=== PATIENT | male | born 1955 | race Hispanic/Latino ===

== ENCOUNTER 2018-10-17 08:56 | Emergency (ER) | payer MEDICAID ==
[2018-10-17 09:28] LABS: Absolute Monocytes 0.6 K/uL (0.1-1.3); Absolute Neutrophil 2.8 K/uL (1.8-8.0); Basophils % 0.6 % (0-1.3); Eosinophils % 1.7 % (0-4.4); Hematocrit 39.9 % (39.6-49.0); Lymphocytes % 35.5 % (15.3-44.8); MPV 9.6 fL (7.6-11.3); Monocytes % 10.7 % (3.3-12.3); RBC Red Blood Cell Count 4.06 M/uL (4.33-5.43)
[2018-10-17 09:37] LABS: Protime INR 1.3
[2018-10-17 09:47] LABS: ALT/SGPT 24 U/L (12-78); AST/SGOT 26 U/L (15-37); Albumin 2.6 g/dL (3.4-5.0); Alkaline Phosphatase 140 U/L (45-117); BUN Blood Urea Nitrogen 12 mg/dL (7-18); Bicarbonate 28 mmol/L (21-32); Bilirubin Total 2.3 mg/dL (0.2-1.0); Glucose Level 260 mg/dL (74-106); NT PRO-BNP 161 pg/mL (<125); Potassium 3.7 mmol/L (3.5-5.1); Protein, Total 7.3 g/dL (6.4-8.2); Sodium Level 138 mmol/L (136-145); Troponin (Emerg Dept Use Only) < 0.02 ng/mL (0.0-0.045)
--- NOTE | 2018-10-17 09:54 | RAD REPORT ---
EXAM DESCRIPTION: RAD - Chest Single View - 10/17/2018 9:37 am CLINICAL HISTORY: CHEST PAIN Chest pain. COMPARISON: No comparisons FINDINGS: Portable technique limits examination quality. Small opacity in the right lung base is noted likely representing developing infiltrate/ pneumonia. T he lungs are otherwise clear. The heart is normal in size. No displaced fractures.
--- NOTE | 2018-10-17 10:57 | RAD REPORT ---
EXAM DESCRIPTION: CTAbdomen Pelvis W Contrast - 10/17/2018 10:29 am CLINICAL HISTORY: Abdominal pain. Upper abdominal pain COMPARISON: No comparisons TECHNIQUE: Biphasic CT imaging of the abdomen and pelvis was performed with 100 ml non-ionic IV cont rast. All CT scans are performed using dose optimization technique as appropriate and may include automated exposure control or mA/KV adjustment according to patient size. FINDINGS: Opacity in the medial right lung base has the appearance of round atelectasis. A small rig ht pleural effusion is noted. Heterogenous appearance to the liver parenchyma is noted the nodular contour present. Arterial phase enhancing lesion is noted in the left lobe of the liver measuring approximately 4.2 x 3.5 cm. Adjacen t hypodense tubular structures are seen presumably related to thrombosed portal vein radicles. Mild a scites is seen along the right liver edge. Small hiatal hernia. The spleen, pancreas, adrenal glands and kidneys show no acute process. No bowel obstruction is identified. Subtle irregular soft tissue is seen in the anterior omentum whic h could indicate early findings of omental carcinomatosis. Similarly prominent soft tissue density is seen along the right pericolic gutter also seen. No lytic or blastic bone lesion IMPRESSION: Small early arterial phase enhancing lesion in left lobe of the liver likely represents HCC. 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 Subtle findings of prominent soft tissue along the anterior omental fat raises the possibility of ear ly omental carcinomatosis. Mild ascites. Round atelectasis is suspect in the medial right lung base with a small right pleural effusion.
[2018-10-17 11:51] LABS: Blood Morphology Comment NOT SEEN (NOT SEEN); Platelet Estimate DECR; Platelets, Giant FEW; Urine White Blood Cell Casts OK
--- NOTE | 2018-10-17 12:53 | EDPHYS ---
Physician Documentation [facility] Name: Neto Ingram Age: 63 yrs Sex: Male : 1955 Arrival Date: 10/17/2018 Time: 08:58 Bed 2 Private MD: None, None ED Physician Evangelist Kinney HPI: 10/17 10:00 This 63 yrs old Male presents to ER via Wheelchair with complaints of Back pm1 Pain, Abdominal Pain. 10:00 The patient presents with abdominal pain in the upper abdomen. Onset: The pm1 symptoms/episode began/occurred yesterday. The symptoms do not radiate. Associated signs and symptoms: Pertinent positives: subjective fever, Pertinent negatives: nausea, vomiting, and diarrhea, chest pain, constipation, dysuria, shortness of breath. The symptoms are described as achy. Modifying factors: The symptoms are alleviated by nothing, the symptoms are aggravated by nothing. The patient has experienced similar episodes in the past, multiple times. The patient has not recently seen a physician, just moved to area 2 months ago. Patient with known HCC since November of last year. Has not received any therapy for it yet. Last night patient reports onset of abdominal pain and left sided lower back pain. Reports subjective fever. No N/V/D or constipation. Has had difficulty finding oncology that will see him. Historical: - Allergies: 09:00 No Known Allergies; aa5 - PMHx: 09:00 Hypertension; Diabetes - IDDM; Cirrhosis; Lupus; Depression; Anxiety; Liver tumor; aa5 - Immunization history:: Flu vaccine is not up to date. - Social history:: Smoking status: Patient/guardian denies using tobacco. - Ebola Screening: : No symptoms or risks identified at this time. ROS: 10:00 Constitutional: Negative for fever, chills, and weight loss, Eyes: Negative for injury, pm1 pain, redness, and discharge, ENT: Negative for injury, pain, and discharge, Neck: Negative for injury, pain, and swelling, Cardiovascular: Negative for chest pain, palpitations, and edema, Respiratory: Negative for shortness of breath, cough, wheezing, and pleuritic chest pain. 10:00 : Negative for injury, bleeding, discharge, and swelling, MS/Extremity: Negative for injury and deformity, Skin: Negative for injury, rash, and discoloration, Neuro: Negative for headache, weakness, numbness, tingling, and seizure. 10:00 Abdomen/GI: Positive for abdominal pain, Negative for nausea, vomiting, and diarrhea. 10:00 Back: Positive for of the left low back, pain. Exam: 10:00 Constitutional: This is a well developed, well nourished patient who is awake, alert, pm1 and in no acute distress. Head/Face: Normocephalic, atraumatic. Eyes: Pupils equal round and reactive to light, extra-ocular motions intact. Lids and lashes normal. Conjunctiva and sclera are non-icteric and not injected. Cornea within normal limits. Periorbital areas with no swelling, redness, or edema. ENT: Nares patent. No nasal discharge, no septal abnormalities noted. Tympanic membranes are normal and external auditory canals are clear. Oropharynx with no redness, swelling, or masses, exudates, or evidence of obstruction, uvula midline. Mucous membranes moist. Neck: Trachea midline, no thyromegaly or masses palpated, and no cervical lymphadenopathy. Supple, full range of motion without nuchal rigidity, or vertebral point tenderness. No Meningismus. Chest/axilla: Normal chest wall appearance and motion. Nontender with no deformity. No lesions are appreciated. Cardiovascular: Regular rate and rhythm with a normal S1 and S2. No gallops, murmurs, or rubs. Normal PMI, no JVD. No pulse deficits. Respiratory: Lungs have equal breath sounds bilaterally, clear to auscultation and percussion. No rales, rhonchi or wheezes noted. No increased work of breathing, no retractions or nasal flaring. Abdomen/GI: Soft, non-tender, with normal bowel sounds. No distension or tympany. No guarding or rebound. No evidence of tenderness throughout. Back: No spinal tenderness. No costovertebral tenderness. Full range of motion. Skin: Warm, dry with normal turgor. Normal color with no rashes, no lesions, and no evidence of cellulitis. MS/ Extremity: Pulses equal, no cyanosis. Neurovascular intact. Full, normal range of motion. 10:00 Neuro: Orientation: is normal, Motor: is normal, moves all fours. Vital Signs: 09:00 BP 160 / 70; Pulse 60; Resp 22; Temp 98; Pulse Ox 100% ; Weight 74.84 kg (R); Height 5 bp ft. 6 in. (167.64 cm) (R); Pain 7/10; 10:07 BP 147 / 71; Pulse 60; Resp 17; Pulse Ox 99% ; bp 11:09 BP 159 / 77; Pulse 62; Resp 20; Pulse Ox 100% ; bp 11:30 BP 151 / 70; Pulse 63; Resp 20; Pulse Ox 99% ; bp 12:00 BP 147 / 80; Pulse 62; Resp 16; Pulse Ox 100% ; bp 13:00 BP 145 / 77; Pulse 65; Resp 21; Pulse Ox 100% ; bp 09:00 Body Mass Index 26.63 (74.84 kg, 167.64 cm) bp MDM: 09:05 Patient medically screened. dilma 12:51 Data reviewed: vital signs. Data interpreted: Pulse oximetry: on room air is 100 %. pm1 Interpretation: normal. 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 10/17 09:03 Order name: Basic Metabolic Panel; Complete Time: 09:54 bp 10/17 09:03 Order name: CBC with Diff; Complete Time: 12:01 bp 10/17 09:03 Order name: LFT's; Complete Time: 09:54 bp 10/17 09:03 Order name: Magnesium; Complete Time: 09:54 bp 10/17 09:03 Order name: NT PRO-BNP; Complete Time: 09:54 bp 10/17 09:03 Order name: PT-INR; Complete Time: 09:54 bp 10/17 09:03 Order name: Troponin (emerg Dept Use Only); Complete Time: 09:54 bp 10/17 09:03 Order name: XRAY Chest (1 view); Complete Time: 10:35 bp 10/17 09:03 Order name: EKG; Complete Time: 09:04 bp 10/17 09:03 Order name: Cardiac monitoring; Complete Time: 09:17 bp 10/17 09:13 Order name: Lipase; Complete Time: 09:54 pm1 10/17 09:14 Order name: CT Abd/Pelvis - W/Contrast: IV contrast only; Complete Time: 11:26 pm1 10/17 10:36 Order name: Blood Culture Adult (2) pm1 10/17 11:51 Order name: CBC Smear Scan; Complete Time: 12:01 [facility] 10/17 09:03 Order name: EKG - Nurse/Tech; Complete Time: 09:17 bp 10/17 09:03 Order name: IV Saline Lock; Complete Time: 09:17 bp 10/17 09:03 Order name: Labs collected and sent; Complete Time: 09:17 bp 10/17 09:03 Order name: O2 Per Protocol; Complete Time: 09:17 bp 10/17 09:03 Order name: O2 Sat Monitoring; Complete Time: 09:17 bp Administered Medications: No medications were administered Disposition: 14:16 Co-signature as Attending Physician, Evangelist Kinney MD I agree with the assessment and dilma plan of care. Disposition: 10/17/18 12:53 Discharged to Home. Impression: Unspecified abdominal pain, Liver mass, Unspecified cirrhosis of liver. - Condition is Stable. - Discharge Instructions: Abdominal Pain, Adult. - Prescriptions for Tramadol 50 mg Oral Tablet - take 1 tablet by ORAL route every 8 hours as needed; 20 tablet. - Medication Reconciliation Form, Thank You Letter, Antibiotic Education, Prescription Opioid Use form. - Follow up: Emergency Department; When: As needed; Reason: Worsening of condition. Follow up: Private Physician; When: 2 - 3 days; Reason: Recheck today's complaints, Continuance of care, Re-evaluation by your physician. - Problem is new. - Symptoms have improved. Signatures: Dispatcher [employer] Evangelist Fall MD MD cha Calderon, Audri, RN RN aa5 Carlos Eduardo Ledezma, TICKET MACHINE OPERATOR TICKET MACHINE OPERATOR pm1 Kang Rosas RN RN bp Corrections: (The following items were deleted from the chart) 13:11 12:53 10/17/2018 12:53 Discharged to Home. Impression: Unspecified abdominal pain; bp Liver mass; Unspecified cirrhosis of liver. Condition is Stable. Forms are Medication Reconciliation Form, Thank You Letter, Antibiotic Education, Prescription Opioid Use. Follow up: Emergency Department; When: As needed; Reason: Worsening of condition. Follow up: Private Physician; When: 2 - 3 days; Reason: Recheck today's complaints, Continuance of care, Re-evaluation by your physician. Problem is new. Symptoms have improved. pm1
--- NOTE | 2018-10-17 12:53 | ER ---
Nurse's Notes [facility] Name: Neto Ingram Age: 63 yrs Sex: Male : 1955 Arrival Date: 10/17/2018 Time: 08:58 Bed 2 Private MD: None, None Diagnosis: Unspecified abdominal pain;Liver mass;Unspecified cirrhosis of liver Presentation: 10/17 09:00 Presenting complaint: Patient states: abd pain and upper back pain that began last aa5 night. Pt's states "he also had fever last night". Pt denies cough, denies nausea, denies vomiting, denies diarrhea. 09:00 Transition of care: patient was not received from another setting of care. Onset of aa5 symptoms was September 2018. Risk Assessment: Do you want to hurt yourself or someone else? Patient reports no desire to harm self or others. Care prior to arrival: None. 09:00 Acuity: BULMARO 3 aa5 09:00 Method Of Arrival: Wheelchair aa5 13:09 Initial Sepsis Screen: Does the patient meet any 2 criteria? No. Patient's initial bp sepsis screen is negative. Does the patient have a suspected source of infection? No. Patient's initial sepsis screen is negative. Triage Assessment: 09:00 General: Appears in no apparent distress. uncomfortable, Behavior is cooperative, bp appropriate for age, anxious. Pain: Complains of pain in chest and abdomen. Cardiovascular: Rhythm is sinus rhythm. Musculoskeletal: Circulation, motion, and sensation intact. Range of motion: intact in all extremities. Historical: - Allergies: 09:00 No Known Allergies; aa5 - PMHx: 09:00 Hypertension; Diabetes - IDDM; Cirrhosis; Lupus; Depression; Anxiety; Liver tumor; aa5 - Immunization history:: Flu vaccine is not up to date. - Social history:: Smoking status: Patient/guardian denies using tobacco. - Ebola Screening: : No symptoms or risks identified at this time. Screenin:15 Abuse screen: Denies threats or abuse. Denies injuries from another. Nutritional bp screening: No deficits noted. Tuberculosis screening: No symptoms or risk factors identified. Fall Risk None identified. Assessment: 09:15 General: Appears in no apparent distress. comfortable, Behavior is cooperative, bp appropriate for age, anxious. Pain: Pain radiates to abdomen and chest Pain began 1 day ago. Neuro: Level of Consciousness is awake, alert, obeys commands, Oriented to person, place, time, situation, Appropriate for age. Cardiovascular: No deficits noted. Respiratory: Airway is patent Respiratory effort is even, unlabored, Respiratory pattern is regular, symmetrical. GI: Abdomen is non-distended. : No signs and/or symptoms were reported regarding the genitourinary system. EENT: No deficits noted. Derm: No deficits noted. Musculoskeletal: Circulation, motion, and sensation intact. Range of motion: intact in all extremities. 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 VS STABLE, RESULTS PENDING. bp 11:10 Reassessment: ALL CURRENT ORDERS COMPLETED, RESULTS PENDING FOR DISPO. bp 12:15 Reassessment: NO ACUTE S/S AT THIS TIME, VS STABLE ON MONITOR. bp 13:08 Reassessment: PT D/C HOME AMBULATORY WITH FAMILY, DX WITH NONSPECIFIC LIVER MASS. bp Vital Signs: 09:00 BP 160 / 70; Pulse 60; Resp 22; Temp 98; Pulse Ox 100% ; Weight 74.84 kg (R); Height 5 bp ft. 6 in. (167.64 cm) (R); Pain 7/10; 10:07 BP 147 / 71; Pulse 60; Resp 17; Pulse Ox 99% ; bp 11:09 BP 159 / 77; Pulse 62; Resp 20; Pulse Ox 100% ; bp 11:30 BP 151 / 70; Pulse 63; Resp 20; Pulse Ox 99% ; bp 12:00 BP 147 / 80; Pulse 62; Resp 16; Pulse Ox 100% ; bp 13:00 BP 145 / 77; Pulse 65; Resp 21; Pulse Ox 100% ; bp 09:00 Body Mass Index 26.63 (74.84 kg, 167.64 cm) bp ED Course: 08:58 Patient arrived in ED. mr 08:59 None, None is Private Physician. mr 09:00 Arm band placed on. aa5 09:02 Kang Rosas, KATIE is Primary Nurse. bp 09:04 Carlos Eduardo Ledezma NP is PHCP. pm1 09:04 Evangelist Kinney MD is Attending Physician. pm1 09:09 Triage completed. aa5 09:15 Patient has correct armband on for positive identification. Bed in low position. Call bp light in reach. Side rails up X2. Adult w/ patient. residential monitor on. Pulse ox on. NIBP on. 09:17 Initial lab(s) drawn, by me, sent to lab. EKG done, by medicine technologist. reviewed by Carlos Eduardo Ledezma NP. Inserted saline lock: 20 gauge in right antecubital area, using aseptic technique. Blood collected. 09:19 EKG done, by medicine technologist. reviewed by Carlos Eduardo Ledezma NP. dt2 09:27 Radiology exam delayed due to lab results not completed at this time. (BUN/Creatinine). vr 09:30 X-ray completed. Portable x-ray completed in exam room. Patient tolerated procedure jb2 well. 09:31 XRAY Chest (1 view) In Process Unspecified. EDMS 10:29 CT Abd/Pelvis - W/Contrast: IV contrast only In Process Unspecified. EDMS 13:09 No provider procedures requiring assistance completed. IV discontinued. Patient bp maintains SpO2 saturation greater than 95% on room air. Administered Medications: No medications were administered Outcome: 12:53 Discharge ordered by MD. pm1 13:09 Discharged to home ambulatory, with family. bp 13:09 Condition: stable 13:09 Discharge instructions given to patient, family, Instructed on discharge instructions, follow up and referral plans. medication usage, Demonstrated understanding of instructions, follow-up care, medications, Prescriptions given X 1. 13:11 Patient left the ED. bp Signatures: Dispatcher [employer] EDMS RoyTelly jb1 Lisseth Tiwari, Celio jb2 Caren Pinto RN RN aa5 Davis, Victoria vr Marinas, Patrick, NP CLERGY MEMBER pm1 Kang Rosas RN RN Mely Larose dt2 Corrections: (The following items were deleted from the chart) 09:28 09:00 74.84 kg Reported; Height 5 ft. 6 in. Reported; BMI: 26.6; Pain 7/10; rose mary bp
--- NOTE | 2018-10-17 18:40 | EKG ---
Test Date: 2018-10-17 Test Time: 09:11:26 Igniter Capper: REFUGIO MEASUREMENT RESULTS: Intervals: Rate: 60 NV: 150 QRSD: 90 QT: 432 QTc: 432 [place]: P: 25 NV: 150 QRS: 0 T: 62 INTERPRETIVE STATEMENTS: Normal sinus rhythm Normal ECG No previous ECG available for comparison Electronically Signed On 10-17-18 18:39:48 CUSTOMER CARE AGENT by Raymundo Stewart
== END 2018-10-17 13:11 | disposition home or self-care (01) ==
LOC: ER 08:56
DX: K74.60 Unspecified cirrhosis of liver (principal); D49.0 Neoplasm of unspecified behavior of digestive system; I10 Essential (primary) hypertension
CPT/HCPCS: 36415; 71045; 74177; 80048; 80076; 83690; 83735; 83880; 84484; 85025; 85610; 87040; 93005; 99285; Q9967

== ENCOUNTER 2020-01-10 08:51 | Emergency (ER) | payer MEDICAID, OTHER ==
--- OUTSIDE RECORDS SUMMARY | 2020-01-10 09:49 | XMS REPORT | Summary of Care ---
:1955 Author Organization [facility] - Health Address [address] [place] [address] Care Team Providers Name Role Phone Antelmo Serrano MD Primary Care Provider Encounter Details Date Type Department Care Team Description 03/14/2019 Orders Only [facility] Doctor Unassigned, No [address] [facility] [place] [address] [place] [id number] Allergies Active Allergy Reactions Severity Noted Date Comments Influenza A (H1n1) Vac 2009 Nausea and/or Vomiting documented as of this encounter (statuses as of 03/17/2019) Medications Medication Sig Dispensed Refills Start Date End Date Status spironolactone 50 mg Take 50 mg by 0 Active tablet mouth daily. lactulose 10 gram/15 mL Take by mouth 0 Active solution daily. traMADOL 50 mg tablet Take 50 mg by 0 Active mouth daily. LEVEMIR FLEXTOUCH U-100 inject 30 Units 5 08/07/2018 Active INSULN 100 unit/mL (3 under the skin mL) injection daily. INCONTROL PEN NEEDLE 31 USAR ANAI VEZ AL 4 08/09/2018 Active gauge x 1/4" Ndle SAMANTHA. predniSONE 10 mg Take 1 tablet by 30 tablet 6 11/16/2018 Active tabletIndications: mouth daily. Hepatocellular carcinoma furosemide 40 mg Take 1 tablet by 30 tablet 6 11/16/2018 Active tabletIndications: mouth daily. Hepatocellular carcinoma nadolol 20 mg Take 1 tablet by 30 tablet 6 11/16/2018 Active tabletIndications: mouth daily. Alcoholic cirrhosis of liver without ascites LORazepam 1 mg Take 1 tablet by 30 tablet 5 11/16/2018 Active tabletIndications: mouth daily. Anxiety magnesium oxide 400 mg Take 1 tablet by 30 tablet 6 11/16/2018 Active (241.3 mg magnesium) mouth daily. tabletIndications: Hepatocellular carcinoma ONETOUCH VERIO strip USAR ANAI A DOS 12 11/25/2018 Active VECES AL SAMANTHA. ONETOUCH VERIO SYSTEM USAR ANAI A DOS 0 11/25/2018 Active Misc VECES AL SAMANTHA. ONE TOUCH DELICA 33 USAR ANAI A DOS 12 11/25/2018 Active gauge Misc VECES AL SAMANTHA. AMMONIUM LACTATE 12 % APLIQUE A AREA 385 g 1 12/29/2018 Active cream AFECTADO DOS VECES AL SAMANTHA POR 4 SEMANAS. venlafaxine XR 75 mg 24 Take 1 capsule 30 capsule 1 02/10/2019 Active hr capsule by mouth daily with breakfast. Ferrous Fumarate-Folic Take 1 30 tablet 5 02/22/2019 Active Acid (HEMOCYTE-F) 324 TAB-CAP/M2 by mg (106 mg iron)-1 mg mouth daily. TabIndications: Iron deficiency anemia, unspecified iron deficiency anemia type rifAXIMin 550 mg Take 1 tablet by 60 tablet 5 02/22/2019 Active tabletIndications: mouth 2 (two) Alcoholic cirrhosis of times daily. liver without ascites documented as of this encounter (statuses as of 03/17/2019) Active Problems Problem Noted Date HCC (hepatocellular carcinoma) 12/14/2018 Alcoholic cirrhosis 10/19/2018 Hepatocellular carcinoma 10/19/2018 documented as of this encounter (statuses as of 03/17/2019) Social History Tobacco Use Types Packs/Day Years Used Date Never Smoker Smokeless Tobacco: Never Used Alcohol Use Drinks/Week oz/Week Comments No Sex Assigned at Date Recorded Not on file Job Start Date Occupation Industry Not on file Not on file Not on file Travel History Travel Start Travel End No recent travel history available. documented as of this encounter Last Filed Vital Signs Not on filedocumented in this encounter Plan of Treatment Date Type Specialty Care Team Description 03/27/2019 Office Visit Family Medicine Adelso Serrano MD [address] [place] [address] [phone] 06/02/2019 Office Visit Gastroenterology Hortencia Duque MD [address] [place] [address] [phone] Health Maintenance Due Date Last Done Comments PNEUMOCOCCAL 0-64 YEARS COMBINED 1962 SERIES (1 of 3 - PCV13) EYE EXAM 1966 URINE MICROALBUMIN 1966 FOOT EXAM 1974 DTaP,Tdap,and Td Vaccines (1 - 1975 Tdap) COLONOSCOPY 2006 Zoster Recombinant Vaccine 2006 (SHINGRIX) (1 of 2) INFLUENZA VACCINE 04/23/2019 HgA1C 09/14/2019 03/14/2019, 11/16/2018 CREATININE (SERUM) 03/14/2020 03/14/2019, 12/15/2018, 12/13/2018, Additional history exists LDL-C 03/14/2020 03/14/2019 HEPATITIS C (HCV) SCREEN Completed 11/01/2018 documented as of this encounter Procedures Procedure Name Priority Date/Time Associated Diagnosis Comme nts AUTHORIZATION FOR RELEASE Routine 03/14/2019 12:01 AM OF PHI CDT documented in this encounter Results Not on filedocumented in this encounter Insurance Payer Benefit Plan / Subscriber ID Effective Dates Phone Addre ss Type Group [facility] ST[facility] xxxxxxxxx 2018-Present Medicaid COMM PLAN - PLUS MANAGED MEDICAID documented as of this encounter
--- OUTSIDE RECORDS SUMMARY | 2020-01-10 09:50 | XMS REPORT | Summary of Care ---
:1955 Author Organization [facility] - [facility] Address [address] [place] [id number] Care Team Providers Name Role Phone Antelmo Serrano MD Primary Care Provider Reason for Referral (Routine) Status Reason Specialty Diagnoses / Referred By Referred To Procedures Contact Contact New Request Diagnoses Shortness of breath Adelso Serrano Shiwan, Procedures CONSULT/REFERRAL PULMONARY MD Antelmo [address] [facility] [place] [phone] Phone: Fax: Reason for Visit Reason Comments Follow-up follow up visit, referral to GI and pulmatologist, refill Encounter Details Date Type Department Care Team Description 03/27/2019 Office Visit [facility] Family Adelso Serrano Alcohol ic cirrhosis of liver without ascites (Primary Dx); [facility] Yoli Rodriges MD Shortness of breath [address] [place] [address] [address], [place] [phone] Allergies Active Allergy Reactions Severity Noted Date Comments Influenza A (H1n1) Vac 2008 Nausea and/or Vomiting documented as of this encounter (statuses as of 03/27/2019) Medications Medication Sig Dispensed Refills Start Date End Date Status spironolactone 50 mg Take 50 mg by 0 Active tablet mouth daily. lactulose 10 gram/15 Take by mouth 0 Active mL solution daily. traMADOL 50 mg Take 50 mg by 0 A ctive tablet mouth daily. LEVEMIR FLEXTOUCH inject 30 5 08/07/2018 A ctive U-100 INSULN 100 Units under unit/mL (3 mL) the skin injection daily. INCONTROL PEN NEEDLE USAR ANAI VEZ 4 08/09/2018 Active 31 gauge x 1/4" Ndle AL SAMANTHA. predniSONE 10 mg Take 1 tablet 30 tablet 6 11/16/2018 Active tabletIndications: by mouth Hepatocellular daily. carcinoma furosemide 40 mg Take 1 tablet 30 tablet 6 11/16/2018 Active tabletIndications: by mouth Hepatocellular daily. carcinoma nadolol 20 mg Take 1 tablet 30 tablet 6 11/16/2018 A ctive tabletIndications: by mouth Alcoholic cirrhosis daily. of liver without ascites LORazepam 1 mg Take 1 tablet 30 tablet 5 11/16/2018 Active tabletIndications: by mouth Anxiety daily. magnesium oxide 400 Take 1 tablet 30 tablet 6 11/16/2018 Active mg (241.3 mg by mouth magnesium) daily. tabletIndications: Hepatocellular carcinoma ONETOUCH VERIO strip USAR ANAI A DOS 12 11/25/2018 Active VECES AL SAMANTHA. ONETOUCH VERIO USAR ANAI A DOS 0 11/25/2018 Active SYSTEM Misc VECES AL SAMANTHA. ONE TOUCH DELICA 33 USAR ANAI A DOS 12 11/25/2018 Active gauge Misc VECES AL SAMANTHA. AMMONIUM LACTATE 12 APLIQUE A AREA 385 g 1 12/29/2018 Active % cream AFECTADO DOS VECES AL SAMANTHA POR 4 SEMANAS. venlafaxine XR 75 mg Take 1 capsule 30 capsule 1 02/10/2019 Active 24 hr capsule by mouth daily with breakfast. Ferrous Take 1 30 tablet 5 02/22/2019 Active Fumarate-Folic Acid TAB-CAP/M2 by (HEMOCYTE-F) 324 mg mouth daily. (106 mg iron)-1 mg TabIndications: Iron deficiency anemia, unspecified iron deficiency anemia type rifAXIMin 550 mg Take 1 tablet 60 tablet 12 03/27/2019 Active tabletIndications: by mouth 2 Alcoholic cirrhosis (two) times of liver without daily. ascites rifAXIMin 550 mg Take 1 tablet 60 tablet 5 02/22/2019 03/27/20 1 Discontinued tabletIndications: by mouth 2 9 Alcoholic cirrhosis (two) times of liver without daily. ascites rifAXIMin 550 mg Take 1 tablet 60 tablet 5 03/27/2019 03/27/20 1 Discontinued tabletIndications: by mouth 2 9 Alcoholic cirrhosis (two) times of liver without daily. ascites documented as of this encounter (statuses as of 03/27/2019) Active Problems Problem Noted Date HCC (hepatocellular carcinoma) 12/14/2018 Alcoholic cirrhosis 10/19/2018 Hepatocellular carcinoma 10/19/2018 documented as of this encounter (statuses as of 03/27/2019) Social History Tobacco Use Types Packs/Day Years Used Date Never Smoker Smokeless Tobacco: Never Used Alcohol Use Drinks/Week oz/Week Comments No Sex Assigned at Date Recorded Not on file Job Start Date Occupation Industry Not on file Not on file Not on file Travel History Travel Start Travel End No recent travel history available. documented as of this encounter Last Filed Vital Signs Vital Sign Reading Time Taken Comments Blood Pressure 126/68 03/27/2019 1:03 PM CDT Pulse 72 03/27/2019 1:03 PM CDT Temperature 37.6 C (99.6 F) 03/27/2019 1:03 PM CDT Respiratory Rate 16 03/27/2019 1:03 PM CDT Oxygen Saturation - - Inhaled Oxygen Concentration - - Weight 81.2 kg (179 lb) 03/27/2019 1:03 PM CDT Height 165.1 cm (5' 5") 03/27/2019 1:03 PM CDT Body Mass Index 29.79 03/27/2019 1:03 PM CDT documented in this encounter Progress Notes Adelso Serrano MD - 03/27/2019 1:00 PM CDT CC: follow up cirrhosis and referral lung Neto is a 63 year old male Patient is doing pretty well but is concerned with his pulmonary function Still very weak No further anemia Allergies Allergen Reactions Influenza A (H1n1) Vac 2008 Nausea and/or Vomiting Current Outpatient Medications Medication Sig Dispense Refill Ferrous Fumarate-Folic Acid (HEMOCYTE-F) 324 mg (106 mg iron)-1 mg Tab Take 1 TAB-CAP/M2 by mouth daily. 30 tablet 5 rifAXIMin 550 mg tablet Take 1 tablet by mouth 2 (two) times daily. 60 tablet 5 venlafaxine XR 75 mg 24 hr capsule Take 1 capsule by mouth daily with breakfast. 30 capsule 1 AMMONIUM LACTATE 12 % cream APLIQUE A AREA AFECTADO DOS VECES AL SAMANTHA POR 4 SEMANAS. 385 g 1 ONE TOUCH DELICA 33 gauge Misc USAR ANAI A DOS VECES AL SAMANTHA. 12 ONETOUCH VERIO strip USAR ANAI A DOS VECES AL SAMANTHA. 12 ONETOUCH VERIO SYSTEM Misc USAR ANAI A DOS VECES AL SAMANTHA. 0 furosemide 40 mg tablet Take 1 tablet by mouth daily. 30 tablet 6 LORazepam 1 mg tablet Take 1 tablet by mouth daily. 30 tablet 5 magnesium oxide 400 mg (241.3 mg magnesium) tablet Take 1 tablet by mouth daily. 30 tablet 6 nadolol 20 mg tablet Take 1 tablet by mouth daily. 30 tablet 6 predniSONE 10 mg tablet Take 1 tablet by mouth daily. 30 tablet 6 INCONTROL PEN NEEDLE 31 gauge x 1/4" Ndle USAR ANAI VEZ AL SAMANTHA. 4 LEVEMIR FLEXTOUCH U-100 INSULN 100 unit/mL (3 mL) injection inject 30 Units under the skin daily. 5 traMADOL 50 mg tablet Take 50 mg by mouth daily. lactulose 10 gram/15 mL solution Take by mouth daily. spironolactone 50 mg tablet Take 50 mg by mouth daily. No current facility-administered medications for this visit. Past Medical History: Diagnosis Date Cirrhosis Hepatocellular carcinoma Past Surgical History: Procedure Laterality Date HERNIA REPAIR Social History Socioeconomic History Marital status: Spouse name: Not on file Number of children: Not on file Years of education: Not on file Highest education level: Not on file Occupational History Occupation: RETIRED Social Needs Financial resource strain: Not on file Food insecurity: Worry: Not on file Inability: Not on file Transportation needs: Medical: Not on file Non-medical: Not on file Tobacco Use Smoking status: Never Smoker Smokeless tobacco: Never Used Substance and Sexual Activity Alcohol use: No Drug use: No Sexual activity: Not Currently Lifestyle Physical activity: Days per week: Not on file Minutes per session: Not on file Stress: Not on file Relationships Social connections: Talks on phone: Not on file Gets together: Not on file Attends jew service: Not on file Active member of club or organization: Not on file Attends meetings of clubs or organizations: Not on file Relationship status: Not on file Intimate partner violence: Fear of current or ex partner: Not on file Emotionally abused: Not on file Physically abused: Not on file Forced sexual activity: Not on file Other Topics Concern Not on file 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 He appears well- developed and well-nourished. HENT: Head: Normocephalic and atraumatic. Eyes: Conjunctivae are normal. Neck: Normal range of motion. Neck supple. No JVD present. No tracheal deviation present. No thyromegaly present. Cardiovascular: Normal rate, regular rhythm, normal heart sounds and intact distal pulses. Exam reveals no gallop and no friction rub. No murmur heard. Pulmonary/Chest: Effort normal and breath sounds normal. No respiratory distress. He has no wheezes.He has no rales. He exhibits no tenderness. Abdominal: Soft. Bowel sounds are normal. He exhibits no distension and no mass. There is no tenderness. There is no rebound and no guarding. Musculoskeletal: Normal range of motion. He exhibits no edema or tenderness. Lymphadenopathy: He has no cervical adenopathy. Neurological: He is alert and oriented to person, place, and time. Skin: Skin is warm and dry. Diagnosis: 1. Alcoholic cirrhosis of liver without ascites rifAXIMin 550 mg tablet DISCONTINUED: rifAXIMin 550 mg tablet 2. Shortness of breath CONSULT/REFERRAL PULMONARY stop the iron tablets Follow up: 3 months Patient Care Team: Adelso Srerano MD as PCP - General ([facility]ILY [facility]ICINE) Plan of care, desired health behaviors, goals,& medication discussed with patient. Education resources & self management tools provided and reviewed with AVS. Patient/guardian/family verbalized understanding & agrees to plan of care. Barriers to care: None Ability to manage care: Good documented in this encounter Plan of Treatment Date Type Specialty Care Team Description 06/02/2019 Office Visit Gastroenterology Hortencia Duque MD [address] [place] [address] [phone] Health Maintenance Due Date Last Done Comments [...] Completed 11/01/2018 documented as of this encounter Results Not on filedocumented in this encounter Visit Diagnoses Diagnosis Alcoholic cirrhosis of liver without asc ites - Primary Alcoholic cirrhosis of liver Shortness of breath documented in this encounter Insurance Payer Benefit Plan / Subscriber ID Effective Dates Phone Addre ss Type Group [facility] STAR xxxxxxxxx 2018-Present Medicaid COMM PLAN - PLUS MANAGED MEDICAID documented as of this encounter
--- OUTSIDE RECORDS SUMMARY | 2020-01-10 09:50 | XMS REPORT | Summary of Care ---
:1955 Author Organization [facility] - [facility] Address [address] [place] [address] Care Team Providers Name Role Phone Antelmo Serrano MD Primary Care Provider Reason for Referral (Routine) Status Reason Specialty Diagnoses / Referred By Referred To Procedures Contact Contact New Request Diagnoses Shortness of breath Adelso Serrano Shiwan, Procedures CONSULT/REFERRAL PULMONARY MD Antelmo [address] [facility] [phone] Phone: Fax: Reason for Visit Reason Comments Follow-up follow up visit, referral to GI and pulmatologist, refill Encounter Details Date Type Department Care Team Description 03/27/2019 Office Visit [facility] Family Adelso Serrano Alcohol ic cirrhosis of liver without ascites (Primary Dx); [facility] Yoli Rodriges MD Shortness of breath [address] [place] [address] [address] [place], [place] [phone] Allergies Active Allergy Reactions [...] file Gets together: Not on file Attends druze service: Not on file Active member of [...] 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
--- OUTSIDE RECORDS SUMMARY | 2020-01-10 09:50 | XMS REPORT | Summary of Care ---
:1955 Author Organization [facility] - Health Address [address] [place] [address] Care Team Providers Name Role Phone Antelmo Serrano MD Primary Care Provider Encounter Details Date Type Department Care Team Description 03/23/2019 Orders Only [facility] Doctor Unassigned, No [address] [facility] [place] [address] [place] [id number] Allergies Active Allergy Reactions Severity Noted Date Comments Influenza A (H1n1) Vac 2009 Nausea and/or Vomiting documented as of this encounter (statuses as of 03/24/2019) Medications Medication Sig Dispensed Refills Start Date [...] as of this encounter (statuses as of 03/24/2019) Active Problems Problem Noted Date HCC (hepatocellular carcinoma) 12/14/2018 Alcoholic cirrhosis 10/19/2018 Hepatocellular carcinoma 10/19/2018 documented as of this encounter (statuses as of 03/24/2019) Social History Tobacco Use Types Packs/Day Years [...] Office Visit Family Medicine Adelso Serrano MD [address] [place] [phone] 06/02/2019 Office Visit Gastroenterology Hortencia Duque MD [address] [place] [address] [phone] Health Maintenance Due Date Last Done Comments [...] Diagnosis Comme nts AUTHORIZATION FOR RELEASE Routine 03/23/2019 12:01 AM OF PHI CDT documented in this encounter Results Not on filedocumented in this encounter Insurance Payer Benefit Plan / Subscriber ID Effective Dates Phone Addre ss Type Group [facility] STAR xxxxxxxxx 2018-Present Medicaid COMM PLAN - PLUS MANAGED MEDICAID documented as of this encounter
--- OUTSIDE RECORDS SUMMARY | 2020-01-10 09:50 | XMS REPORT | Summary of Care ---
:1955 Author Organization [facility] - [facility] Address [address] [place] [address] Care Team Providers Name Role Phone Antelmo Serrano MD Primary Care Provider Reason for Referral (Routine) Status Reason Specialty Diagnoses / Referred By Referred To Procedures Contact Contact New Request Diagnoses Shortness of breath Adelso Serrano Shiwan, Procedures CONSULT/REFERRAL PULMONARY MD Antelmo [address] [facility] [place] [phone] Phone: Fax: Reason for Visit Reason Comments Follow-up follow up visit, referral to GI and pulmatologist, refill Encounter Details Date Type Department Care Team Description 03/27/2019 Office Visit [facility] Family Adelso Serrano Alcohol ic cirrhosis of liver without ascites (Primary Dx); [facility] Yoli Rodriges MD Shortness of breath [address] [place] [address] [address] [place], [place] [phone] Allergies Active Allergy Reactions [...] file Gets together: Not on file Attends confucianist service: Not on file Active member of [...] 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
--- OUTSIDE RECORDS SUMMARY | 2020-01-10 09:50 | XMS REPORT ---
:1955 Author Organization [facility] t Address [address] [place] [address] Care Team Providers Name Role Phone Adelso Serrano MD Attending Clinician Neto MARTE Attending Clinician Problems This patient has no known problems. Allergies, Adverse Reactions, Alerts This patient has no known allergies or adverse reactions. Medications This patient has no known medications. Procedures This patient has no known procedures. Encounters Start End Encounter Admission Attending Care Care Encounter Source Date/Time Date/Time Type Type Clinicians Facility Department ID 2020-01-10 2020-01-10 Telephone YARI Serrano [id number] 00:00:00 00:00:00 [facility] [id number] Antelmo Kent [id number] Professio [phone] nal [address] 2019-11-29 2019-11-29 [facility] COREY Duque [id number] 07:01:03 07:31:03 ne Visit [facility] [id number] [facility] [id number] 2019-10-18 2019-10-18 Office OLIVIA Duque [id number] 09:17:58 10:25:05 Visit [facility] [id number] [facility] [id number] Results This patient has no known results.
--- OUTSIDE RECORDS SUMMARY | 2020-01-10 09:51 | XMS REPORT | Summary of Care ---
:1955 Author Organization [facility] Address [address] [place] [address] Care Team Providers Name Role Phone Antelmo Serrano MD Primary Care Provider Reason for Visit MRI/CAT Scan (Routine) Status Reason Specialty Diagnoses / Referred By Referred To Procedures Contact Contact New Request Diagnostic Diagnoses Hepatocellular carcinoma [place], Radiology Procedures CT ABDOMEN PELVIS W WO CONTRAST CT ABDOMEN W WO CONTRAST MD Cathi [address] [place] [address] Encounter Details Date Type Department Care Team Description 04/11/2019 Hospital Encounter [facility] Leandro Duque Arrived [place] Computed MD Tomography [address] [place] [address] [place] [address] [phone] Allergies Active Allergy Reactions Severity Noted Date Comments Influenza A (H1n1) Vac 2008 Nausea and/or Vomiting documented as of this encounter (statuses as of 04/12/2019) Medications Medication Sig Dispensed Refills Start Date End Date Status lactulose 10 gram/15 mL Take by mouth [...] DOS VECES AL SAMANTHA POR 4 SEMANAS. Ferrous Fumarate-Folic Take 1 30 tablet 5 02/22/2019 Active Acid (HEMOCYTE-F) 324 TAB-CAP/M2 by mg (106 mg iron)-1 mg mouth daily. TabIndications: Iron deficiency anemia, unspecified iron deficiency anemia type rifAXIMin 550 mg Take 1 tablet by 60 tablet 12 03/27/2019 Active tabletIndications: mouth 2 (two) Alcoholic cirrhosis of times daily. liver without ascites VENLAFAXINE XR 75 mg 24 TOME ANAI (1) 30 capsule 0 04/05/2019 Active hr capsule CAPSULA(S) POR LA BOCA ANAI VEZ AL SAMANTHA CON EL DESAYUNO. furosemide 40 mg Take 1.5 tablets 30 tablet 6 04/07/2019 Active tabletIndications: by mouth daily. Hepatocellular carcinoma spironolactone 50 mg Take 2 tablets 90 tablet 3 04/07/2019 Active tabletIndications: by mouth daily. Decompensated hepatic cirrhosis documented as of this encounter (statuses as of 04/12/2019) Active Problems Problem Noted Date Decompensated hepatic cirrhosis 04/11/2019 Overview: Added automatically from request for everette [email or web address] [id number] HCC (hepatocellular carcinoma) 12/14/2018 Alcoholic cirrhosis 10/19/2018 Hepatocellular carcinoma 10/19/2018 documented as of this encounter (statuses as of 04/12/2019) Social History Tobacco Use Types Packs/Day Years [...] Treatment Date Type Specialty Care Team Description 05/18/2019 Office Visit Pulmonary Disease Minnie Bowles DO [address] [place] [id number] [phone] 05/25/2019 Hospital Surgery [facility], Decompensated h epatic cirrhosis Encounter MD Cathi [address] [place] [address] [phone] 05/25/2019 Surgery Surgery [facility], ESOPHAGOGASTROD UODENOSCOPY MD Cathi [address] [place] [address] [phone] 07/05/2019 Office Visit Gastroenterology Cathi Duque MD [address] [place] [address] [phone] Health Maintenance Due Date Last Done Comments PNEUMOCOCCAL 0-64 YEARS COMBINED 1962 SERIES (1 of 3 - PCV13) EYE EXAM 1966 URINE MICROALBUMIN 1966 FOOT EXAM 1974 DTaP,Tdap,and Td Vaccines (1 - 1975 Tdap) COLONOSCOPY 2006 Zoster Recombinant Vaccine 2006 (SHINGRIX) (1 of 2) INFLUENZA VACCINE (#1) 2019 HgA1C 09/14/2019 03/14/2019, 11/16/2018 LDL-C 03/14/2020 03/14/2019 CREATININE (SERUM) 04/07/2020 04/07/2019, 03/14/2019, 12/15/2018, Additional history exists HEPATITIS C (HCV) SCREEN Completed 11/01/2018 documented as of this encounter Procedures Procedure Name Priority Date/Time Associated Diagnosis Comme nts CT ABDOMEN PELVIS Routine 04/11/2019 1:43 Hepatocellular Resu lts for this W WO CONTRAST PM CDT carcinoma procedure are in the results section. documented in this encounter Results CT ABDOMEN PELVIS W WO CONTRAST (04/11/2019 1:43 PM CDT) Specimen Narrative Performed At CT Abdomen and Pelvis without and with i ntravenous contrast. PACS/VR/DOSE CLINICAL HISTORY: Liver lesion. DOSE: Up-to-date CT equipment and radiation dose reduc tion techniques were employed. DLP: 264+469+400+4 and 2+396 m Gy-cm. TECHNIQUE : Contiguous axial imaging fro m the level of the lung bases through the pubic symphysis were perform ed initially without and subsequently after the uncomplicated administration of Omnipaque contrast material.Coronal and sagittal recons tructions were obtained. Auto mA and/or iterative recon struction were used to reduce radiation dose. FINDINGS: Comparison is made with 019 study. Lower lungs: Small right pleural effusion and known ch ronic area of rounded atelectasis again noted in the medial ri ght lower lung, unchanged. Left lower lung is clear. No pericardial effu harris. Liver, Gallbladder and Spleen: Nodular contour of the liver with slightly heterogeneous attenuation texture noted. Previously visualized 3.5 cm lesion in the left lobe has been treated and very dens e radiopaque material is occupying the central portion of the tumor, approxi mately 3.1 cm size. There is no abnormal enhancement surrounding the dense embolizing material. There is minimal residual low attenuatio n branching abnormality in the peripheral left lobe which could either be thrombosed portal vein described previously and/or residual minimally dil ated biliary ducts. No tumor thrombus is seen in the portal vein. No calcified gallstones. Extrahepatic biliary ducts an d the pancreatic duct appear normal. Additional 1 cm and subcentimeter cystic changes in the subdiaphragmatic left lobe of the liver unchanged. Peritoneum:No free air or free fluid . No lymphadenopathy. Pancreas and Adrenals:Unremarkable p ancreas and adrenal glands. Kidneys and Ureters:No visible calculi in the danette l collecting systems. No hydroureter or hydronephrosis. Vessels: Mild atherosclerosis. No abdominal aortic ane urysm. 2 right renal arteries and 2 left renal arteries are s een arising from the abdominal aorta. Retroperitoneum: No abnormal fluid or ly mphadenopathy. Bowel: Slightly thickened mucosa lining of portions of the jejunum noted without any definite signs of enteritis. Large bowel is unremarkable. Bladder and Reproductive Organs: Mild enlargement of t he prostate gland and slightly thickened urinary bladder millard noted. Bones: No acute findings. Soft tissues: Small soft tissue masslike density in th e anterior abdominal wall just below the level of umbilicus i s unchanged. CONCLUSION: 1. Changes of treated tumor of left lobe of the liver. No enhancing lesions are seen in the left lobe. Interval impr ovement with decrease signs of thrombosis distal portal vein and/or distally dilated biliary ducts in the left lobe when compared with 11/01/2018 s tudy. 2. Unchanged small volume right pleural effusion and r ounded atelectasis of the right lower lobe. . Procedure Note [facility], Radiant Results Inft User - 2018 2:[address] Abdomen and Pelvis without and with intravenous contrast. CLINICAL HISTORY: Liver lesion. DOSE: Up-to-date CT equipment and radiat ion dose reduction techniques were employed. DLP: 264+469+400+4 and 2+396 m Gy-cm. TECHNIQUE : Contiguous axial imaging fro m the level of the lung bases through the pubic symphysis were perform ed initially without and subsequently after the uncomplicated adm inistration of Omnipaque contrast material. Coronal and sagittal reconstr uctions were obtained. Auto mA and/or iterative recon struction were used to reduce radiation dose. FINDINGS: Comparison is made with 019 study. Lower lungs: Small right pleural effusio n and known chronic area of rounded atelectasis again noted in the medial ri ght lower lung, unchanged. Left lower lung is clear. No pericardial effu harris. Liver, Gallbladder and Spleen: Nodular c ontour of the liver with slightly heterogeneous attenuation texture noted. Previously visualized 3.5 cm lesion in the left lobe has been treated and very dense radiopaque material is occupying the central portion of the tumor, approximately 3.1 cm size. There is no abnormal enhancement surroun ding the dense embolizing material. There is minimal residual low attenuatio n branching abnormality in the peripheral left lobe which could either be thrombosed portal vein described previously and/or residual minimally dil ated biliary ducts. No tumor thrombus is seen in the portal vein. No calcified gallstones. Extrahepatic bi liary ducts and the pancreatic duct appear normal. Additional 1 cm and subcentimeter cystic changes in the subdiaphragmatic left lobe of the liver unchanged. Peritoneum: No free air or free fluid. No lymphadenopathy. Pancreas and Adrenals: Unremarkable ceja creas and adrenal glands. Kidneys and Ureters: No visible calculi in the renal collecting systems. No hydroureter or hydronephrosis. Vessels: Mild atherosclerosis. No abdomi nal aortic aneurysm. 2 right renal arteries and 2 left renal arteries are s een arising from the abdominal aorta. Retroperitoneum: No abnormal fluid or ly mphadenopathy. Bowel: Slightly thickened mucosa lining of portions of the jejunum noted without any definite signs of enteritis. Large bowel is unremarkable. Bladder and Reproductive Organs: Mild en largement of the prostate gland and slightly thickened urinary bladder millard noted. Bones: No acute findings. Soft tissues: Small soft tissue masslike density in the anterior abdominal wall just below the level of umbilicus i s unchanged. CONCLUSION: 1. Changes of treated tumor of left lobe of the liver. No enhancing lesions are seen in the left lobe. Interval impr ovement with decrease signs of thrombosis distal portal vein and/or dis tally dilated biliary ducts in the left lobe when compared with 11/01/2018 s jeffery. 2. Unchanged small volume right pleural effusion and rounded atelectasis of the right lower lobe. . Performing Organization Address City/State/Zipcode Phone Number PACS/VR/DOSE documented in this encounter Visit Diagnoses Diagnosis Hepatocellular carcinoma Malignant neoplasm of liver, primary documented in this encounter Administered Medications Medication Order MAR Action Action Date Dose Rate Site iohexol (OMNIPAQUE 350 BULK-150 Given 04/11/2019 1:32 PM CDT 15 0 mL mL) injection 150 mL 150 mL, Intravenous, ONCE, 1 dose, 04/11/19 at 1400, Routine documented in this encounter Insurance Payer Benefit Plan / Subscriber ID Effective Dates Phone Addre ss Type Group [facility] STAR xxxxxxxxx 2018-Present Medicaid COMM PLAN - PLUS MANAGED MEDICAID documented as of this encounter
--- OUTSIDE RECORDS SUMMARY | 2020-01-10 09:51 | XMS REPORT | Summary of Care ---
:1955 Author Organization [facility] - [facility] Address [address] [place] [address] Care Team Providers Name Role Phone Antelmo Serrano MD Primary Care Provider Reason for Visit Reason Comments Refill Request Encounter Details Date Type Department Care Team Description 04/05/2019 Refill [facility] Family Medicine Adelso Kaur MD Refill Request - [address] [place] [address] [place] [address] [phone] Allergies Active Allergy Reactions Severity Noted Date Comments Influenza A (H1n1) Vac 2008 Nausea and/or Vomiting documented as of this encounter (statuses as of 04/05/2019) Medications Medication Sig Dispensed Refills Start Date [...] VECES AL SAMANTHA POR 4 SEMANAS. Ferrous Take 1 30 tablet 5 02/22/2019 Active Fumarate-Folic Acid TAB-CAP/M2 by (HEMOCYTE-F) 324 mg mouth daily. (106 mg iron)-1 mg TabIndications: Iron deficiency anemia, unspecified iron deficiency anemia type rifAXIMin 550 mg Take 1 tablet 60 tablet 12 03/27/2019 Active tabletIndications: by mouth 2 Alcoholic cirrhosis (two) times of liver without daily. ascites VENLAFAXINE XR 75 mg TOME ANAI (1) 30 capsule 0 04/05/2019 Active 24 hr capsule CAPSULA(S) POR LA BOCA ANAI VEZ AL SAMANTHA CON EL DESAYUNO. venlafaxine XR 75 mg Take 1 capsule 30 capsule 1 02/10/2019 Discontinued 24 hr capsule by mouth daily 9 with breakfast. documented as of this encounter (statuses as of 04/05/2019) Active Problems Problem Noted Date HCC (hepatocellular carcinoma) 12/14/2018 Alcoholic cirrhosis 10/19/2018 Hepatocellular carcinoma 10/19/2018 documented as of this encounter (statuses as of 04/05/2019) Social History Tobacco Use Types Packs/Day Years [...] Office Visit Pulmonary Disease Minnie Bowles DO [address] [place] [phone] 06/02/2019 Office Visit Gastroenterology Hortencia Duque MD [address] [place] [address] [phone] Health Maintenance Due Date Last Done Comments [...] Effective Dates Phone Addre ss Type Group [facility] STAR xxxxxxxxx 2018-Present Medicaid COMM PLAN - PLUS MANAGED MEDICAID documented as of this encounter
--- OUTSIDE RECORDS SUMMARY | 2020-01-10 09:51 | XMS REPORT | Summary of Care ---
:1955 Author Organization [facility] - [facility] Address [address] [place] [address] Care Team Providers Name Role Phone Antelmo Serrano MD Primary Care Provider Reason for Visit Reason Comments Blood Draw Encounter Details Date Type Department Care Team Description 04/07/2019 Spanish Interpreter/Translator Visit LAB SERVICES AT [facility] Neville Duque MD [address] [place] [address] Decompensated [facility] hepatic cirrhosis [address] [place] [phone] Allergies Active Allergy Reactions Severity Noted Date Comments Influenza A (H1n1) Vac 2008 Nausea and/or Vomiting documented as of this encounter (statuses as of 04/07/2019) Medications Medication Sig Dispensed Refills Start Date [...] as of this encounter (statuses as of 04/07/2019) Active Problems Problem Noted Date HCC (hepatocellular carcinoma) 12/14/2018 Alcoholic cirrhosis 10/19/2018 Hepatocellular carcinoma 10/19/2018 documented as of this encounter (statuses as of 04/07/2019) Social History Tobacco Use Types Packs/Day Years [...] Treatment Date Type Specialty Care Team Description 04/11/2019 Appointment Radiology Leeann Duque MD [address] [place] [address] [phone] 05/18/2019 Office Visit Pulmonary Disease Minnie Bowles DO [address] [place] [phone] 07/05/2019 Office Visit Gastroenterology Hortencia Duque MD [address] [place], [place] [id number] Health Maintenance Due Date Last Done Comments PNEUMOCOCCAL 0-64 YEARS COMBINED 1962 SERIES (1 of 3 - PCV13) EYE EXAM 1966 URINE MICROALBUMIN 1966 FOOT EXAM 1974 DTaP,Tdap,and Td Vaccines (1 - 1975 Tdap) COLONOSCOPY 2006 Zoster Recombinant Vaccine 2006 (SHINGRIX) (1 of 2) INFLUENZA VACCINE (#1) 2019 HgA1C 09/14/2019 03/14/2019, 11/16/2018 CREATININE (SERUM) 03/14/2020 03/14/2019, 12/15/2018, 12/13/2018, Additional history exists LDL-C 03/14/2020 03/14/2019 HEPATITIS C (HCV) SCREEN Completed 11/01/2018 documented as of this encounter Results Not on filedocumented in this encounter Visit Diagnoses Diagnosis Decompensated hepatic cirrhosis documented in this encounter Insurance Payer Benefit Plan / Subscriber ID Effective Dates Phone Addre ss Type Group [facility] xxxxxxxxx 2018-Present Medicaid COMM PLAN - PLUS MANAGED MEDICAID documented as of this encounter
--- OUTSIDE RECORDS SUMMARY | 2020-01-10 09:52 | XMS REPORT | Summary of Care ---
:1955 Author Organization [facility] Address [address] [place] [address] Care Team Providers Name Role Phone Antelmo Serrano MD Primary Care Provider Reason for Visit Reason Comments New Patient (Routine) Status Reason Specialty Diagnoses / Referred By Referred To Procedures Contact Contact New Request Gastroenterology Diagnoses Hepatocellular carcinoma Adelso Serrano, Procedures CONSULT/REFERRAL HEPATOLOGY MD Cathi Rodriges MD [address] [place] [phone] Phone: Fax: Encounter Details Date Type Department Care Team Description 04/07/2019 Office Visit [facility] Neto, Decompensated h epatic cirrhosis (Primary Dx); Gastroenterology-LC Deborah Winkler Hepatocellular carcinoma; [facility] [address] [place] [address] Portal hypertension; [address] [place] [address] So [facility] [place] [address] Allergies Active Allergy Reactions Severity Noted Date Comments Influenza A (H1n1) Vac 2008 Nausea and/or Vomiting documented as of this encounter (statuses as of 04/25/2019) Medications Medication Sig Dispensed Refills Start Date End Date Status lactulose 10 gram/15 Take by mouth 0 [...] EL DESAYUNO. furosemide 40 mg Take 1.5 30 tablet 6 04/07/2019 Ac tive tabletIndications: tablets by Hepatocellular mouth daily. carcinoma spironolactone 50 mg Take 2 tablets 90 tablet 3 04/07/2019 Active tabletIndications: by mouth Decompensated daily. hepatic cirrhosis spironolactone 50 mg Take 50 mg by 0 04/07 Discontinued tablet mouth daily. 9 furosemide 40 mg Take 1 tablet 30 tablet 6 11/16/2018 04/07/20 1 Discontinued tabletIndications: by mouth 9 Hepatocellular daily. carcinoma documented as of this encounter (statuses as of 04/25/2019) Active Problems Problem Noted Date Decompensated hepatic cirrhosis 04/11/2019 Overview: Added automatically from request for everette luna [id number] HCC (hepatocellular carcinoma) 12/14/2018 Alcoholic cirrhosis 10/19/2018 Hepatocellular carcinoma 10/19/2018 documented as of this encounter (statuses as of 04/25/2019) Social History Tobacco Use Types Packs/Day Years [...] Sign Reading Time Taken Comments Blood Pressure 159/76 04/07/2019 2:27 PM CDT Pulse 70 04/07/2019 2:27 PM CDT Temperature 37.2 C (98.9 F) 04/07/2019 2:27 PM CDT Respiratory Rate - - Oxygen Saturation 94% 04/07/2019 2:27 PM CDT Inhaled Oxygen Concentration - - Weight 81.2 kg (179 lb 1.6 oz) 04/07/2019 2:27 PM CDT Height - - Body Mass Index 29.8 03/27/2019 1:03 PM CDT documented in this encounter Progress Notes Cathi Duque MD - 04/07/2019 2:30 PM CDT Gastroenterology & Hepatology Clinic Note Date: 11/14/2018 CC/Referral reason: CLEMENS cirrhosis with HCC Referred by: Adelso Serrano Md [address] [place] [address] [place] [address] HPI: Neto Ingram is a 63 year old male with CLEMENS vs EtOH cirrhosis (MELD-Na 12) with no known decompensations c/b HCC (3.5cm LIRADS 5 lesion) who presents for evaluation of liver transplantation. He also has a diagnosis of lupus for which he is taking prednisone but was recently seen by [place] who did not believe that he has the condition. His major symptom related to lupus is bone pain. Patient states that he is a Buddhist and he is unwilling to accept blood products, but is willing to use a cell saver. His case was discussed at tumor board on 11/02/18, and the decision was made to refer him to surgery to consider resection, and then TACE if he is deemed to not be a surgical candidate. He used to drink up to 6 beers per day for about 15 years. He reported his last drink was in 2015. He was accompanied to clinic with his and [id number]. The patient was declined listing because he could not receive blood transfusions. He was referred for TACE in November, has not had follow-up imaging since then. He does not have significant abdominal norlower extremity swelling today but the patient's daughter reports that he has had pleural effusions in the past and that his breathing has been getting worse. He does not have significant pleural effusion on clinical examination today. He does not has ascites nor flank dullness. 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 30 capsule 0 rifAXIMin 550 mg tablet Take 1 tablet by mouth 2 (two) times daily. 60 tablet 12 Ferrous Fumarate-Folic Acid (HEMOCYTE-F) 324 mg (106 mg iron)-1 mg Tab Take 1 TAB-CAP/M2 by mouth daily. 30 tablet 5 AMMONIUM LACTATE 12 % cream APLIQUE A [...] No current facility-administered medications for this visit. ROS: General: (-) fever, (-) chills, (-) weight change, (-) dizziness, (-) lightheadedness, (-) decreasedappetite, (-) fatigue Skin: (-) rash, (-) lesion HEENT: (-) headache, (-) nasal discharge, (-) sore throat, (-) vision changes, Neck: (-) pain Heme: (-) bleeding disorder Resp: (-) cough, (-) shortness of breath Cardio: (-) chest pain, (-) palpitations GI: (-) abdominal pain, (-) hematemesis, (-) melena, (-) hematochezia, (-) nausea, (-) vomiting : (-) dysuria, (-) hematuria Endo: (-) polyuria (-) polydipsia Neuro: (-) numbness, (-) tingling IONA: (-) muscle pain, (-) joint pain Psych: (-) suicidal ideation , (-) homicidal ideation PE: BP (!) 159/76 (BP Location: Left arm, Patient Position: Sitting, BP CUFF SIZE: Adult Medium) | Pulse 70 | Temp 37.2 C (98.9 F) (Tympanic) | Wt 179 lb 1.6 oz (81.2 kg) | SpO2 94% | BMI 29.80 kg/m General appearance: appears to be in no acute distress, conversant and cooperative Eyes: anicteric sclerae, moist conjunctivae HENT: atraumatic; oropharynx clear with moist mucous membranes Lungs: decreased air entry in right base compared to left, dullness to percussion in the right base compared to left. CV: regular rate and rhythm, no murmurs, rubs, or gallop; no lower extremity edema GI: soft, non-tender to palpation; negative Ugarte's sign; no masses appreciated on light or deep palpation; non-distended; no appreciable hepatosplenomegaly; no ascites MSK: no clubbing or cyanosis Skin: anicteric, no rashes Psych: normal mood and affect, alert and oriented to person, place, time, and situation Labs / Radiology: Recent Labs 11/01/18 1500 12/13/18 1554 12/15/18 0344 03/14/19 0851 WBC 7.30 7.12 -- 5.40 HGB 11.3* 13.4 -- 12.9 HCT 33.7* 40.8 -- 37.6* PLT 86* 80* -- 75* MCV 98.8* 101.7* -- 98.7* MONOPCT 14.9 12.1 -- 12.4 EOSPCT 1.2 1.1 -- 2.6 NA 136 136 136 140 K 4.7 5.0 4.2 4.0 CL 101 102 104 104 TCO2 28 26 24 27 BUN 18 14 19 16 CREAT 0.88 0.78 0.95 0.76 GLU 204* 133* 233* 93 ALKPHOS 105 137* -- 128* BILIT 1.4* 2.0* -- 1.6* BILIUNCON 0.7 0.9 -- -- TPRO 6.8 7.9 -- 7.2 ALB 3.0* 3.5 -- 3.1* ALT 28 29 -- 26 AST 33 45* -- 38 PTINR 1.4 1.3 -- -- Endoscopy: None. Assessment / Plan: Neto Ingram is a 63 year old male with CLEMENS vs EtOH cirrhosis (MELD- Na 12), Tamy Rose Class B, with no known decompensations c/b HCC (3.5cm LIRADS 5 lesion) who presents for evaluation ofliver transplantation. 1. CLEMENS cirrhosis: His MELD is 13 as of October of this year. He reports complications of hepatic encephalopathy and ascites in the past for which he had paracentesis x 1 in May 2018. He is not listed for transplant because of his inability to receive blood transfusions. 2. HCC: He underwent TACE in November 2018 but has not had follow-up imaging. I will re-order CT triplephase to reassess HCC. 3. Portal hypertension: Manifested by hypersplenism, ascites, and encephalopathy. 4. Ascites: He had paracentesis x 1 in May 2018 but has not required repeat paracentesis since he was started on lasix and aldactone. However, his [id number] reports that he was told that he had pleural fluid collection as well and that his breathing has been getting progressively worse. I will increase lasix to 60mg daily and aldactone to 100mg daily. They do not have a good understanding of sodium restriction because of language barrier. I will refer for consultation with dentures lab technician for education regarding sodium restriction 5. Encephalopathy: Continues on lactulose and rifaximin. Currently [place] grade 0. 6. Varices screening: His last EGD 2015 demonstrated no varices. He will need EGD for varices screening. 7. Colon cancer surveillance: Patient had two polyps (8mm and 3mm) removed during colonoscopy in 2016 but we do not have results of pathology. He will need repeat colonoscopy in 2020. 8. Lupus: Diagnosis is unclear. He takes daily steroid for it but the daughter reports that a "specialist" in the [place] had ordered special test to confirm the diagnosis. 9. Disposition: Repeat CT triple phase. Obtain EGD. Increase lasix and aldactone as above. Return toclinic in 3 months. Cathi Duque MD Gastroenterology/ Transplant Hepatology Pager [phone] 04/07/2019 15:16 Arelis Gaspar MA - 04/07/2019 2:30 PM CDTRblaire Ingram came into clinic with no complaints and no distress noted. documented in this encounter Plan of Treatment Date Type Specialty Care Team Description 05/18/2019 Office Visit Pulmonary Disease Minnie Bowles DO [address] [place] [phone] [phone] 05/25/2019 Hospital Surgery Neto, Decompensated h epatic cirrhosis Encounter MD Cathi [address] [place] [address] [phone] 05/25/2019 Surgery Surgery Neto, ESOPHAGOGASTROD UODENOSCOPY MD Cathi [address] [place] [address] [phone] 07/05/2019 Office Visit Gastroenterology Cathi Duque MD [address] [place] [address] [phone] Health Maintenance Due Date Last Done Comments [...] Name Priority Date/Time Associated Diagnosis Comme nts PROTHROMBIN TIME / Routine 04/07/2019 3:55 Decompensated hepa tic Results for this INR PM CDT cirrhosis procedure are i n the results section. PROFILE / HEMOGRAM Routine 04/07/2019 3:55 Decompensated hepa tic Results for this PM CDT cirrhosis procedure are i n the results section. COMP. METABOLIC Routine 04/07/2019 3:55 Decompensated hepatic Results for this PANEL ([id number]) PM CDT cirrhosis procedure are in the results section. documented in this encounter Results PROFILE / HEMOGRAM (04/07/2019 3:55 PM CDT) Pathologist Sig nature WBC 6.27 4.20 - 10.70 [facility] 10*3/L [facility] RBC 3.99 (L) 4.26 - 5.52 [facility] 10*6/L [facility] HGB 13.6 12.2 - 16.4 g/dL [facility] HCT 40.7 38.4 - 49.3 % [facility] MCH 34.1 (H) 26.1 - 32.7 pg [facility] MCV 102.0 (H) 81.7 - 95.6 fL [facility] MCHC 33.4 31.2 - 35.0 g/dL [facility] PLT 72 (L) 150 - 328 10*3/L [facility] MPV 11.5 9.8 - 13.0 fL [facility] RDW-CV 14.4 12.1 - 15.4 % [facility] RDW-SD 54.5 (H) 38.5 - 51.6 fL [facility] NRBC x10^3 <0.01 10*3/L [facility] NRBC/100 WBC 0.0 0.0 - 10.0 /100 [facility] WBCs [facility] IPF % 1.2 - 10.7 % [facility] Specimen Blood - ARM, RIGHT Performing Organization Address City/[facility]/Zipcode Phone Number [facility] CLIA: [id number], [address] [place] [address] [phone] [facility] PROTHROMBIN TIME / INR (04/07/2019 3:55 PM CDT) PROTIME PATIENT 14.9 (H) 12.0 - 14.7 [facility] Seconds [facility] INR 1.2Comment: Normal [facility] INR <1.1; Warfarin [facility] Therapeutic range [facility] 2.0 to 3.0 or 2.5 to 3.5, depending upon the indications. Specimen Blood - ARM, RIGHT Performing Organization Address [facility] Phone Number [facility] CLIA: [id number], [address] [place] [address] [facility] COMP. METABOLIC PANEL ([id number]) (04/07/2019 3:55 PM CDT) Pathologist Sig nature NA 138 135 - 145 [facility] mmol/L [facility] K 4.7 3.5 - 5.0 [facility] mmol/L [facility] CL 102 98 - 108 mmol/L [facility] CO2 TOTAL 27 23 - 31 mmol/L [facility] AGAP 9 2 - 16 [facility] BUN 15 7 - 23 mg/dL [facility] GLUCOSE 133 (H) 70 - 110 mg/dL [facility] CREATININE 0.81 0.60 - 1.25 [facility] mg/dL [facility] TOTAL BILI 1.9 (H) 0.1 - 1.1 mg/dL [facility] CALCIUM 9.0 8.6 - 10.6 [facility] mg/dL [facility] T PROTEIN 7.6 6.3 - 8.2 g/dL [facility] ALBUMIN 3.3 (L) 3.5 - 5.0 g/dL [facility] ALK PHOS 157 (H) 34 - 122 U/L [facility] ALT(SGPT) 23 9 - 51 U/L [facility] AST(SGOT) 47 (H) 13 - 40 U/L [facility] eGFR Calculation 96.6 mL/min/1.73m2 [facility] (Non- [facility] [place]ian) [place] eGFR Calculation 117.0 mL/min/1.73m2 [facility] () [facility] Specimen Blood - ARM, RIGHT Narrative Performed At [facility] [place] [facility] Glomerular Filtration Rate [facility] (GFR) and Staging of Kidney Disease* CAMPUS + + --+ + | GFR (mL/min/1.73 m2)| With Kidney Damage|Without Kidney Damage + + --+ + |>90 |Stage one| Normal + + --+ + |60-89| Stage two| Decreased GFR + + --+ + |30-59| Stage three| Stage three + + --+ + |15-29| Stage four | Stage four + + --+ + |<15 (or dialysis)|Stage five | Stage five + + --+ + *Each stage assumes the associated GFR level has been in effect for at least three months.Stages 1 to 5, with or without kidney disease, indicate chronic kidney disease. Notes: Determination of stages one and two (with eGFR >59mL/min/1.73 m2) requires estimation of kidney damage for at least three months as defined by structural or functional abnormalities of the kidney, manifested by either: Pathological abnormalities or Markers of kidney damage (including abnormalities in the composition of the blood or urine or abnormalities in imaging tests). Performing Organization Address City/State/Zipcode Phone Number [facility] CLIA: [id number], [address] [place] [address] SERVICES-[facility] documented in this encounter Visit Diagnoses Diagnosis Decompensated hepatic cirrhosis - Primar y Hepatocellular carcinoma Malignant neoplasm of liver, primary Portal hypertension Other ascites documented in this encounter Insurance Payer Benefit Plan / Subscriber ID Effective Dates Phone Addre ss Type Group [facility] xxxxxxxxx 2018-Present Medicaid COMM PLAN - PLUS MANAGED MEDICAID documented as of this encounter
--- OUTSIDE RECORDS SUMMARY | 2020-01-10 09:53 | XMS REPORT | Summary of Care ---
:1955 Author Organization [facility] Address [address] [place] [address] Care Team Providers Name Role Phone Antelmo Serrano MD Primary Care Provider Reason for Visit Reason Comments Refill Request Encounter Details Date Type Department Care Team Description 05/02/2019 Refill [facility] Jama hightower, Adelso Rodriges MD Refill Request - [address] [place] [address] [place] [address] [phone] Allergies Active Allergy Reactions Severity Noted Date Comments Influenza A (H1n1) Vac 2008 Nausea and/or Vomiting documented as of this encounter (statuses as of 05/02/2019) Medications Medication Sig Dispensed Refills Start Date [...] (two) times of liver without daily. ascites furosemide 40 mg Take 1.5 30 tablet 6 04/07/2019 Ac tive tabletIndications: tablets by Hepatocellular mouth daily. carcinoma spironolactone 50 mg Take 2 tablets 90 tablet 3 04/07/2019 Active tabletIndications: by mouth Decompensated daily. hepatic cirrhosis VENLAFAXINE XR 75 mg TOME ANAI (1) 30 capsule 0 05/02/2019 Active 24 hr capsule CAPSULA(S) POR LA BOCA ANAI VEZ AL SAMANTHA CON EL DESAYUNO. VENLAFAXINE XR 75 mg TOME ANAI (1) 30 capsule 0 04/05/201904/23 0/201 Discontinued 24 hr capsule CAPSULA(S) POR 9 LA BOCA ANAI VEZ AL SAMANTHA CON EL DESAYUNO. documented as of this encounter (statuses as of 05/02/2019) Active Problems Problem Noted Date Decompensated hepatic cirrhosis 04/11/2019 Overview: Added automatically from request for everette davisony [id number] HCC (hepatocellular carcinoma) 12/14/2018 Alcoholic cirrhosis 10/19/2018 Hepatocellular carcinoma 10/19/2018 documented as of this encounter (statuses as of 05/02/2019) Social History Tobacco Use Types Packs/Day Years [...] Office Visit Pulmonary Disease Minnie Bowles DO [address] [place] [address] [phone] 05/25/2019 Hospital Surgery [facility], Decompensated h epatic cirrhosis Encounter MD Cathi [address] [place] [address] [phone] 05/25/2019 Surgery Surgery [facility], ESOPHAGOGASTROD UODENOSCOPY MD Cathi [address] [place] [address] [phone] 07/05/2019 Office Visit Gastroenterology Cathi Duque MD [address] [place] [address] [phone] Health Maintenance Due Date Last Done Comments [...] / Subscriber ID Effective Dates Phone Addre Type Group [facility] xxxxxxxxx 2018-Present Medicaid COMM PLAN - PLUS MANAGED MEDICAID documented as of this encounter
--- OUTSIDE RECORDS SUMMARY | 2020-01-10 09:53 | XMS REPORT | Summary of Care ---
:1955 Author Organization [facility] Address [address] [place] [address] Care Team Providers Name Role Phone Antelmo Serrano MD Primary Care Provider Reason for Visit Reason Comments Refill Request Encounter Details Date Type Department Care Team Description 10/08/2019 Refill [facility] Jama hightower, Adelso Rodriges MD Refill Request - [address] [place] [address] [place] [address] [phone] Allergies Active Allergy Reactions Severity Noted Date Comments Hydroxychloroquine Rash 05/25/2019 Influenza A (H1n1) Vac 2009 Nausea and/or Vomiting documented as of this encounter (statuses as of 10/09/2019) Medications Medication Sig Dispensed Refills Start Date End Date Status lactulose 10 gram/15 Take by 0 Active mL solution mouth daily. predniSONE 10 mg Take 1 tablet 30 tablet 6 11/16/2018 Active tabletIndications: by mouth Hepatocellular daily. carcinoma magnesium oxide 400 Take 1 tablet 30 tablet 6 11/16/2018 Active mg (241.3 mg by mouth magnesium) daily. tabletIndications: Hepatocellular carcinoma ONE TOUCH DELICA 33 USAR ANAI A 12 11/25/2018 Active gauge Misc DOS VECES AL SAMANTHA. AMMONIUM LACTATE 12 % APLIQUE A 385 g 1 12/29/2018 Active cream AREA AFECTADO DOS VECES AL SAMANTHA POR 4 SEMANAS. venlafaxine XR 75 mg TOME ANAI (1) 30 capsule 12 05/22/2019 Active 24 hr CAPSULA(S) capsuleIndications: POR LA BOCA Anxiety ANAI VEZ AL SAMANTHA CON EL DESAYUNO. nadolol 20 mg Take 1 tablet 30 tablet 12 05/22/2019 A ctive tabletIndications: by mouth Alcoholic cirrhosis daily. of liver without ascites diphenhydrAMINE Take 25 mg by 0 Active (BENADRYL) 25 mg mouth every 6 capsule (six) hours as needed for Allergies. Insulin Detemir inject 30 1 Each 5 06/21/2019 Act carlos alberto (LEVEMIR FLEXTOUCH Units under U-100 INSULN) 100 the skin unit/mL (3 mL) daily. injection Insulin [place], USAR ANAI VEZ 100 Each 4 07/25/2019 Active Disposable, AL SAMANTHA. (INCONTROL PEN NEEDLE) 31 gauge x 1/4" NdleIndications: Type 2 diabetes mellitus without complication, with long-term current use of insulin LORAZEPAM 1 mg TOME ANAI (1) 30 tablet 4 08/02/2019 A ctive tabletIndications: TABLETA(S) Anxiety POR LA BOCA DIARIO. FUROSEMIDE 40 mg TOME ANAI Y 45 tablet 5 08/08/2019 A ctive tabletIndications: MEDIA (1 Y Hepatocellular 1/2) carcinoma TABLETA(S) POR LA BOCA ANAI VEZ AL SAMANTHA. blood sugar USAR ANAI A 50 Strip 12 08/28/2019 Active diagnostic (ONETOUCH DOS VECES AL VERIO) SAMANTHA. stripIndications: Type 2 diabetes mellitus without complication, with long-term current use of insulin spironolactone 50 mg Take 2 90 tablet 3 08/28/2019 Active tabletIndications: tablets by Alcoholic cirrhosis mouth daily. of liver without ascites traMADol 50 mg Take 1 tablet 30 tablet 3 08/28/2019 Active tabletIndications: by mouth Hepatocellular daily. carcinoma Blood-Glucose Meter USAR ANAI A 50 Each 11 09/19/2019 Active (ONETOUCH VERIO DOS VECES AL SYSTEM) Misc SAMANTHA. XIFAXAN 550 mg TOME ANAI (1) 60 tablet 4 10/09/2019 A ctive tabletIndications: TABLETA(S) Alcoholic cirrhosis POR LA BOCA of liver without DOS VECES AL ascites SAMANTHA. rifAXIMin 550 mg Take 1 tablet 60 tablet 12 08/28/2019 10/09/19 2 Discontinued tabletIndications: by mouth 2 0 Alcoholic cirrhosis (two) times of liver without daily. ascites documented as of this encounter (statuses as of 10/09/2019) Active Problems Problem Noted Date Decompensated hepatic cirrhosis 04/11/2019 Overview: Added automatically from request for everette luna [id number] HCC (hepatocellular carcinoma) 12/14/2018 Alcoholic cirrhosis 10/19/2018 Hepatocellular carcinoma 10/19/2018 documented as of this encounter (statuses as of 10/09/2019) Social History Tobacco Use Types Packs/Day Years [...] Treatment Date Type Specialty Care Team Description 10/11/2019 Office Visit Gastroenterology Hortencia Duque MD [address] [place] [address] [phone] 02/26/2020 Office Visit Family Medicine Adelso Serrano MD [address] [place] [address] [phone] Health Maintenance Due Date Last Done Comments PNEUMOCOCCAL 0-64 YEARS COMBINED 1962 SERIES (1 of 3 - PCV13) EYE EXAM 1966 URINE MICROALBUMIN 1966 DTaP,Tdap,and Td Vaccines (1 - 1967 Tdap) FOOT EXAM 1974 COLONOSCOPY 2006 Zoster Recombinant Vaccine 2006 (SHINGRIX) (1 of 2) INFLUENZA VACCINE (#1) 2019 HgA1C 02/26/2020 08/28/2019, 03/14/2019, 11/16/2018 LDL-C 03/14/2020 03/14/2019 CREATININE (SERUM) 07/05/2020 07/05/2019, 04/07/2019, 03/14/2019, Additional history exists HEPATITIS C (HCV) SCREEN Completed 11/01/2018 documented as of this encounter Results Not on filedocumented in this encounter Visit Diagnoses Diagnosis Alcoholic cirrhosis of liver without asc ites Alcoholic cirrhosis of liver documented in this encounter Insurance Payer Benefit Plan / Subscriber ID Effective Dates Phone Addre ss Type Group [facility] xxxxxxxxx 2018-Present Medicaid COMM PLAN - PLUS MANAGED MEDICAID documented as of this encounter
--- OUTSIDE RECORDS SUMMARY | 2020-01-10 09:53 | XMS REPORT | Summary of Care ---
:1955 Author Organization [facility] Address [address] [place] [address] Care Team Providers Name Role Phone Antelmo Serrano MD Primary Care Provider Reason for Visit Reason Comments New Patient (Routine) Status Reason Specialty Diagnoses / Referred By Referred To Procedures Contact Contact New Request Gastroenterology Diagnoses Hepatocellular carcinoma Adelso Serrano, Procedures CONSULT/REFERRAL HEPATOLOGY MD Cathi Rodriges MD [address] [place] [phone] Phone: Fax: Encounter Details Date Type Department Care Team Description 04/07/2019 Office Visit [facility] Neto, Decompensated h epatic cirrhosis (Primary Dx); Gastroenterology-LC Deborah Winkler Hepatocellular carcinoma; [facility] [address] [place] [address] Portal hypertension; [address] [place] [address] So [facility] [place] [address] Allergies Active Allergy Reactions [...] Added automatically from request for everette luna [id number] HCC (hepatocellular carcinoma) 12/14/2018 Alcoholic cirrhosis 10/19/2018 [...] with HCC Referred by: Adelso Serrano Md [address] [place] [address] [place] [address] HPI: Neto Ingram is a 63 year old male with CLEMENS vs EtOH cirrhosis (MELD-Na 12) with no known decompensations c/b HCC (3.5cm LIRADS 5 lesion) who presents for evaluation of liver transplantation. He also has a diagnosis of lupus for which he is taking prednisone but was recently seen by spinner frame in the [place] who did not believe that he has the condition. His major symptom related to lupus is bone pain. Patient states that he is a Zoroastrianism and he is unwilling to accept blood [...] was accompanied to clinic with his and [id number]. 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 However, his [id number] reports that he was told that he had pleural fluid collection as well and that his breathing has been getting progressively worse. I will increase lasix to 60mg daily and aldactone to 100mg daily. They do not have a good understanding of sodium restriction because of language barrier. I will refer for consultation with prosecuting attorney for education regarding sodium restriction 5. Encephalopathy: [...] daughter reports that a "specialist" in the [place] had ordered special test to confirm the diagnosis. 9. Disposition: Repeat CT triple phase. Obtain EGD. Increase lasix and aldactone as above. Return toclinic in 3 months. Cathi Duque MD Gastroenterology/ Transplant Hepatology Pager [phone] 04/07/2019 15:16 Arelis Gaspar MA - 04/07/2019 2:30 PM CDTRblaire Ingram came into clinic with no complaints and no distress noted. documented in this encounter Plan of Treatment Date Type Specialty Care Team Description 05/18/2019 Office Visit Pulmonary Disease Minnie Bowles DO [address] [place] [address] [phone] 05/25/2019 Hospital Surgery Neto, Decompensated h epatic cirrhosis Encounter MD Cathi [address] [place] [address] [phone] 05/25/2019 Surgery Surgery Neto, ESOPHAGOGASTROD UODENOSCOPY MD Cathi [address] [place] [address] [phone] 07/05/2019 Office Visit Gastroenterology Cathi Duque MD [address] [place] [address] 278003 Health Maintenance Due Date Last Done Comments [...] 3:55 Decompensated hepatic Results for this PANEL (62333) PM CDT cirrhosis procedure are in the results section. documented in this encounter Results PROFILE / HEMOGRAM (04/07/2019 3:55 PM CDT) Pathologist Sig nature WBC 6.27 4.20 - 10.70 [facility] 10*3/L [facility] RBC 3.99 (L) 4.26 - 5.52 [facility] 10*6/L [facility] HGB 13.6 12.2 - 16.4 g/dL [facility] HCT 40.7 38.4 - 49.3 % [facility] MCH 34.1 (H) 26.1 - 32.[address] [facility] MCV 102.0 (H) 81.7 - 95.[address] [facility] MCHC 33.4 31.2 - 35.0 g/dL [facility] PLT 72 (L) 150 - 328 10*3/L [facility] MPV 11.5 9.8 - 13.[address] [facility] RDW-CV 14.4 12.1 - 15.4 % [facility] RDW-SD 54.5 (H) 38.5 - 51.[address] [facility] NRBC x10^3 <0.01 10*3/L [facility] NRBC/100 WBC 0.0 0.0 - 10.0 /[address] [facility] WBCs [facility] IPF % 1.2 - 10.7 % [facility] Specimen Blood - ARM, RIGHT Performing Organization Address City/[facility]/Zipcode Phone Number [facility] CLIA: [id number], [address] [place] [address] [facility] PROTHROMBIN TIME / INR (04/07/2019 3:55 PM CDT) PROTIME PATIENT 14.9 (H) 12.0 - 14.[address] [facility] Seconds [facility] INR 1.2Comment: Normal [facility] INR <1.1; Warfarin [facility] Therapeutic range [facility] 2.0 to 3.0 or 2.5 to 3.5, depending upon the indications. Specimen Blood - ARM, RIGHT Performing Organization Address [facility] Phone Number [facility] CLIA: [id number], [address] [place] [address] [facility] COMP. METABOLIC PANEL ([id number]) (04/07/2019 3:55 PM CDT) Pathologist Sig nature NA 138 135 - [address] [facility] mmol/L [facility] K 4.7 3.5 - 5.[address] [facility] mmol/L [facility] CL 102 98 - 108 mmol/L [facility] CO2 TOTAL 27 23 - 31 mmol/L [facility] AGAP 9 2 - 16 [facility] BUN 15 7 - 23 mg/dL [facility] GLUCOSE 133 (H) 70 - 110 mg/dL [facility] CREATININE 0.81 0.60 - 1.25 [facility] mg/dL [facility] TOTAL BILI 1.9 (H) 0.1 - 1.1 mg/dL [facility] CALCIUM 9.0 8.6 - 10.[address] [facility] mg/dL [facility] T PROTEIN 7.6 6.3 - 8.2 g/dL [facility] ALBUMIN 3.3 (L) 3.5 - 5.0 g/dL [facility] ALK PHOS 157 (H) 34 - 122 U/L [facility] ALT(SGPT) 23 9 - 51 U/L [facility] AST(SGOT) 47 (H) 13 - 40 U/L [facility] eGFR Calculation 96.6 mL/min/1.73m2 [facility] (Non- [facility] [place]) [place] eGFR Calculation 117.0 mL/min/1.73m2 [facility] () [facility] Specimen Blood - ARM, RIGHT Narrative Performed At [facility] of Glomerular Filtration Rate [facility] (GFR) and Staging of Kidney Disease* [...] tests). Performing Organization Address City/State/Zipcode Phone Number [facility] CLIA: [id number], [address] [place] [address] SERVICES-[facility] documented in this encounter Visit Diagnoses Diagnosis Decompensated hepatic cirrhosis - Primar y Hepatocellular carcinoma Malignant neoplasm of liver, primary Portal hypertension Other ascites documented in this encounter Insurance Payer Benefit Plan / Subscriber ID Effective Dates Phone Addre ss Type Group [facility] xxxxxxxxx 2018-Present Medicaid COMM PLAN - PLUS MANAGED MEDICAID documented as of this encounter
--- OUTSIDE RECORDS SUMMARY | 2020-01-10 09:53 | XMS REPORT | Summary of Care ---
:1955 Author Organization [facility] Address [address] [place] [address] Care Team Providers Name Role Phone Antelmo Serrano MD Primary Care Provider Reason for Visit Reason Comments Refill Request Encounter Details Date Type Department Care Team Description 09/19/2019 Refill [facility] Family Medicine Jama hightower, Adelso Rodriges MD Refill Request - [address] [place] [address] [place] [address] [phone] Allergies Active Allergy Reactions Severity Noted Date Comments Hydroxychloroquine Rash 05/25/2019 Influenza A (H1n1) Vac 2009 Nausea and/or Vomiting documented as of this encounter (statuses as of 09/19/2019) Medications Medication Sig Dispensed Refills Start Date [...] skin unit/mL (3 mL) daily. injection Insulin [place], USAR ANAI VEZ 100 Each 4 07/25/2019 [...] complication, with long-term current use of insulin rifAXIMin 550 mg Take 1 tablet 60 tablet 12 08/28/2019 Active tabletIndications: by mouth 2 Alcoholic cirrhosis (two) times of liver without daily. ascites spironolactone 50 mg Take 2 90 tablet 3 08/28/2019 Active tabletIndications: tablets by Alcoholic cirrhosis mouth daily. of liver without ascites traMADol 50 mg Take 1 tablet 30 tablet 3 08/28/2019 Active tabletIndications: by mouth Hepatocellular daily. carcinoma Blood-Glucose Meter USAR ANAI A 50 Each 11 09/19/2019 Active (ONETOUCH VERIO DOS VECES AL SYSTEM) Misc SAMANTHA. ONETOUCH VERIO SYSTEM USAR ANAI A 0 11/25/2018 Discontinued Misc DOS VECES AL 0 SAMANTHA. documented as of this encounter (statuses as of 09/19/2019) Active Problems Problem Noted Date Decompensated hepatic cirrhosis 04/11/2019 Overview: Added automatically from request for everette luna [id number] HCC (hepatocellular carcinoma) 12/14/2018 Alcoholic cirrhosis 10/19/2018 Hepatocellular carcinoma 10/19/2018 documented as of this encounter (statuses as of 09/19/2019) Social History Tobacco Use Types Packs/Day Years [...] 10/11/2019 Office Visit Gastroenterology Hortencia Duque MD [address] [place] [address] [phone] 02/26/2020 Office Visit Family Medicine Adelso Serrano MD [address] [place] [address] [phone] Health Maintenance Due Date Last Done [...] Effective Dates Phone Addre ss Type Group [facility] xxxxxxxxx 2018-Present Medicaid COMM PLAN - PLUS MANAGED MEDICAID documented as of this encounter
--- OUTSIDE RECORDS SUMMARY | 2020-01-10 09:54 | XMS REPORT | Summary of Care ---
:1955 Author Organization [facility] Address [address] [place] [address] Care Team Providers Name Role Phone Antelmo Serrano MD Primary Care Provider Reason for Visit Reason Comments Refill Request Encounter Details Date Type Department Care Team Description 10/27/2019 Refill [facility] Family Medicine Jama hightower, Adelso Rodriges MD Refill Request - [address] [place] [address] [place] [address] [phone] Allergies Active Allergy Reactions Severity Noted Date Comments Hydroxychloroquine Rash 05/25/2019 Influenza A (H1n1) Vac 2009 Nausea and/or Vomiting documented as of this encounter (statuses as of 11/01/2019) Medications Medication Sig Dispensed Refills Start End Date Status Date lactulose 10 gram/15 Take by 0 Active mL solution mouth daily. magnesium oxide 400 Take 1 tablet 30 tablet 6 Active mg (241.3 mg by mouth 9 magnesium) daily. tabletIndications: Hepatocellular carcinoma ONE TOUCH DELICA 33 USAR ANAI A 12 Active gauge Misc DOS VECES AL 9 SAMANTHA. AMMONIUM LACTATE 12 APLIQUE A 385 g 1 Active % cream AREA AFECTADO 9 DOS VECES AL SAMANTHA POR 4 SEMANAS. venlafaxine XR 75 mg TOME ANAI (1) 30 capsule 12 Active 24 hr CAPSULA(S) 9 capsuleIndications: POR LA BOCA Anxiety ANAI VEZ AL SAMANTHA CON EL DESAYUNO. nadolol 20 mg Take 1 tablet 30 tablet 12 Ac tive tabletIndications: by mouth 9 Alcoholic cirrhosis daily. of liver without ascites diphenhydrAMINE Take 25 mg by 0 Active (BENADRYL) 25 mg mouth every 6 capsule (six) hours as needed for Allergies. Insulin Detemir inject 30 1 Each 5 Acti ve (LEVEMIR FLEXTOUCH Units under 9 U-100 INSULN) 100 the skin unit/mL (3 mL) daily. injection Insulin [place], USAR ANAI VEZ 100 Each 4 Active Disposable, AL SAMANTHA. 9 (INCONTROL PEN NEEDLE) 31 gauge x 1/4" NdleIndications: Type 2 diabetes mellitus without complication, with long-term current use of insulin LORAZEPAM 1 mg TOME ANAI (1) 30 tablet 4 Ac tive tabletIndications: TABLETA(S) 9 Anxiety POR LA BOCA DIARIO. FUROSEMIDE 40 mg TOME ANAI Y 45 tablet 5 Ac tive tabletIndications: MEDIA (1 Y 9 Hepatocellular 1/2) carcinoma TABLETA(S) POR LA BOCA ANAI VEZ AL SAMANTHA. blood sugar USAR ANAI A 50 Strip 12 Active diagnostic (ONETOUCH DOS VECES AL 0 VERIO) SAMANTHA. stripIndications: Type 2 diabetes mellitus without complication, with long-term current use of insulin spironolactone 50 mg Take 2 90 tablet 3 Active tabletIndications: tablets by 0 Alcoholic cirrhosis mouth daily. of liver without ascites traMADol 50 mg Take 1 tablet 30 tablet 3 A ctive tabletIndications: by mouth 0 Hepatocellular daily. carcinoma Blood-Glucose Meter USAR ANAI A 50 Each 11 Active (ONETOUCH VERIO DOS VECES AL 0 SYSTEM) Misc SAMANTHA. XIFAXAN 550 mg TOME ANAI (1) 60 tablet 4 Ac tive tabletIndications: TABLETA(S) 0 Alcoholic cirrhosis POR LA BOCA of liver without DOS VECES AL ascites SAMANTHA. nadolol 20 mg tablet Take 20 mg by 0 Active mouth daily. Cholecalciferol, Take by 0 Act carlos alberto Vitamin D3, (VITAMIN mouth. D3) 2,000 unit tablet MAGNESIUM CITRATE Take 400 mg 0 Active ORAL by mouth. predniSONE 10 mg Take 1 tablet 30 tablet 6 Active tabletIndications: by mouth 0 Hepatocellular daily. carcinoma predniSONE 10 mg Take 1 tablet 30 tablet 6 11/01/19 Discontinued tabletIndications: by mouth 9 20 ( Reorder) Hepatocellular daily. carcinoma documented as of this encounter (statuses as of 11/01/2019) Active Problems Problem Noted Date Decompensated hepatic cirrhosis 04/11/2019 Overview: Added automatically from request for everette luna [id number] HCC (hepatocellular carcinoma) 12/14/2018 Alcoholic cirrhosis 10/19/2018 Hepatocellular carcinoma 10/19/2018 documented as of this encounter (statuses as of 11/01/2019) Social History Tobacco Use Types Packs/Day Years [...] Treatment Date Type Specialty Care Team Description 11/01/2019 Appointment Radiology Leeann Duque MD [address] [place] [address] [phone] 11/29/2019 Office Visit Gastroenterology Hortencia Duque MD [address] [place] [address] [phone] 02/26/2020 Office Visit Family Medicine Adelso Serrano MD [address] [place], [place] [address] [phone] Health Maintenance Due Date Last Done Comments PNEUMOCOCCAL 0-64 YEARS COMBINED 1962 SERIES (1 of 3 - PCV13) EYE EXAM 1966 URINE MICROALBUMIN 1966 DTaP,Tdap,and Td Vaccines (1 - 1967 Tdap) FOOT EXAM 1974 COLONOSCOPY 2006 Zoster Recombinant Vaccine 2006 (SHINGRIX) (1 of 2) INFLUENZA VACCINE (#1) 2019 HgA1C 02/26/2020 08/28/2019, 03/14/2019, 11/16/2018 LDL-C 03/14/2020 03/14/2019 CREATININE (SERUM) 10/18/2020 10/18/2019, 07/05/2019, 04/07/2019, Additional history exists HEPATITIS C (HCV) SCREEN Completed 11/01/2018 documented as of this encounter Results Not on filedocumented in this encounter Visit Diagnoses Diagnosis Hepatocellular carcinoma Malignant neoplasm of liver, primary documented in this encounter Insurance Payer Benefit Plan / Subscriber ID Effective Dates Phone Addre ss Type Group [facility] xxxxxxxxx 2018-Present Medicaid COMM PLAN - PLUS MANAGED MEDICAID documented as of this encounter
--- OUTSIDE RECORDS SUMMARY | 2020-01-10 09:54 | XMS REPORT | Summary of Care ---
:1955 Author Organization [facility] Address [address] [place] [address] Care Team Providers Name Role Phone Antelmo Serrano MD Primary Care Provider Reason for Visit MRI/CAT Scan (Routine) Status Reason Specialty Diagnoses / Referred By Referred To Procedures Contact Contact Closed Diagnostic Diagnoses Hepatocellular carcinoma Hepatocellular carcinoma [place], Radiology Procedures MR ABDOMEN W WO CONTRAST CHG MRI, ABDOMEN, COMBO MR ABDOMEN W WO CONTRAST MD Cathi [address] [place] [address] Encounter Details Date Type Department Care Team Description 11/08/2019 Hospital Encounter [facility] Leandro Duque Arrived [place] [facility] [address] [place] [address] [place] [address] [phone] Allergies Active Allergy Reactions Severity Noted Date Comments Hydroxychloroquine Rash 05/25/2019 Influenza A (H1n1) Vac 2009 Nausea and/or Vomiting documented as of this encounter (statuses as of 11/09/2019) Medications Medication Sig Dispensed Refills Start Date End Date Status lactulose 10 gram/15 mL Take by mouth 0 Active solution daily. magnesium oxide 400 mg Take 1 tablet by 30 tablet 6 11/16/2018 Active (241.3 mg magnesium) mouth daily. tabletIndications: Hepatocellular carcinoma ONE TOUCH DELICA 33 USAR ANAI A DOS 12 11/25/2018 Active gauge Misc VECES AL SAMANTHA. AMMONIUM LACTATE 12 % APLIQUE A AREA 385 g 1 12/29/2018 Active cream AFECTADO DOS VECES AL SAMANTHA POR 4 SEMANAS. venlafaxine XR 75 mg 24 TOME ANAI (1) 30 capsule 12 05/22/2019 Active hr capsuleIndications: CAPSULA(S) POR Anxiety LA BOCA ANAI VEZ AL SAMANTHA CON EL DESAYUNO. nadolol 20 mg Take 1 tablet by 30 tablet 12 05/22/2019 Active tabletIndications: mouth daily. Alcoholic cirrhosis of liver without ascites diphenhydrAMINE Take 25 mg by 0 Active (BENADRYL) 25 mg mouth every 6 capsule (six) hours as needed for Allergies. Insulin Detemir inject 30 Units 1 Each 5 06/21/2019 Active (LEVEMIR FLEXTOUCH under the skin U-100 INSULN) 100 daily. unit/mL (3 mL) injection Insulin [place]im, USAR ANAI VEZ AL 100 Each 4 07/25/2019 Active Disposable, (INCONTROL SAMANTHA. PEN NEEDLE) 31 gauge x 1/4" NdleIndications: Type 2 diabetes mellitus without complication, with long-term current use of insulin LORAZEPAM 1 mg TOME ANAI (1) 30 tablet 4 08/02/2019 A ctive tabletIndications: TABLETA(S) POR Anxiety LA BOCA DIARIO. FUROSEMIDE 40 mg TOME ANAI Y MEDIA 45 tablet 5 08/08/2019 Active tabletIndications: (1 Y 1/2) Hepatocellular TABLETA(S) POR carcinoma LA BOCA ANAI VEZ AL SAMANTHA. blood sugar diagnostic USAR ANAI A DOS 50 Strip 12 08/28/2019 Active (ONETOUCH VERIO) VECES AL SAMANTHA. stripIndications: Type 2 diabetes mellitus without complication, with long-term current use of insulin spironolactone 50 mg Take 2 tablets 90 tablet 3 08/28/2019 Active tabletIndications: by mouth daily. Alcoholic cirrhosis of liver without ascites traMADol 50 mg Take 1 tablet by 30 tablet 3 08/28/2019 Active tabletIndications: mouth daily. Hepatocellular carcinoma Blood-Glucose Meter USAR ANAI A DOS 50 Each 11 09/19/2019 Active (ONETOUCH VERIO SYSTEM) VECES AL SAMANTHA. Misc XIFAXAN 550 mg TOME ANAI (1) 60 tablet 4 10/09/2019 A ctive tabletIndications: TABLETA(S) POR Alcoholic cirrhosis of LA BOCA DOS liver without ascites VECES AL SAMANTHA. nadolol 20 mg tablet Take 20 mg by 0 Active mouth daily. Cholecalciferol, Take by mouth. 0 Active Vitamin D3, (VITAMIN D3) 2,000 unit tablet MAGNESIUM CITRATE ORAL Take 400 mg by 0 Active mouth. predniSONE 10 mg Take 1 tablet by 30 tablet 6 11/01/2019 Active tabletIndications: mouth daily. Hepatocellular carcinoma documented as of this encounter (statuses as of 11/09/2019) Active Problems Problem Noted Date Decompensated hepatic cirrhosis 04/11/2019 Overview: Added automatically from request for everette luna [id number] HCC (hepatocellular carcinoma) 12/14/2018 Alcoholic cirrhosis 10/19/2018 Hepatocellular carcinoma 10/19/2018 documented as of this encounter (statuses as of 11/09/2019) Social History Tobacco Use Types Packs/Day Years [...] Sign Reading Time Taken Comments Blood Pressure - - Pulse - - Temperature - - Respiratory Rate - - Oxygen Saturation - - Inhaled Oxygen Concentration - - Weight 81.6 kg (180 lb) 11/08/2019 10:51 AM CDT Height 167.6 cm (5' 6") 11/08/2019 10:51 AM CDT Body Mass Index 29.05 11/08/2019 10:51 AM CDT documented in this encounter Plan of Treatment Date Type Specialty Care Team Description 11/29/2019 Office Visit Gastroenterology Hortencia Duque MD [address] [place] [address] 02/26/2020 Office Visit Family Medicine Adelso Serrano MD [address] [place] [phone] Health Maintenance Due Date Last Done [...] Results Not on filedocumented in this encounter Administered Medications Medication Order MAR Action Action Date Dose Rate Site gadoterate meglumine Given 11/08/2019 11:00 AM CDT 16.32 mL Left Arm (DOTAREM-20 mL) injection 16.32 mL 16.32 mL (0.2 mL/kg 81.6 kg), Intravenous, ONCE, 1 dose, Wed11/08/19 at 1100, Routine documented in this encounter Insurance Payer Benefit Plan / Subscriber ID Effective Dates Phone Addre ss Type Group [facility] xxxxxxxxx 2018-Present Medicaid COMM PLAN - PLUS MANAGED MEDICAID [place] (Home) [facility] [phone] [place] [address] (Work) documented as of this encounter
--- OUTSIDE RECORDS SUMMARY | 2020-01-10 09:54 | XMS REPORT | Summary of Care ---
:1955 Author Organization [facility] Address [address] [place] [address] Care Team Providers Name Role Phone Antelmo Serrano MD Primary Care Provider Reason for Referral MRI/CAT Scan (Routine) Status Reason Specialty Diagnoses / Referred By Referred To Procedures Contact Contact Authorized Diagnostic Diagnoses Hepatocellular carcinoma Hepatocellular carcinoma [place], Radiology Procedures MR ABDOMEN W WO CONTRAST CHG MRI, ABDOMEN, COMBO MR ABDOMEN W WO CONTRAST MD Cathi [address] [place] [id number] Reason for Visit MRI/CAT Scan (Routine) Status Reason Specialty Diagnoses / Referred By Referred To Procedures Contact Contact Authorized Diagnostic Diagnoses Hepatocellular carcinoma Hepatocellular carcinoma [place], Radiology Procedures MR ABDOMEN W WO CONTRAST CHG MRI, ABDOMEN, COMBO MR ABDOMEN W WO CONTRAST MD Cathi [address] [place] [address] Encounter Details Date Type Department Care Team Description 11/01/2019 Hospital Encounter [facility], Canceled (LATE Yoli Winkler MD PATIENT NOT SEEN) MRI [address] [place] [address] [place] [address] [phone] Allergies Active Allergy Reactions Severity Noted Date Comments Hydroxychloroquine Rash 05/25/2019 Influenza A (H1n1) Vac 2008 Nausea and/or Vomiting documented as of this encounter (statuses as of 11/02/2019) Medications Medication Sig Dispensed Refills Start Date [...] 100 daily. unit/mL (3 mL) injection Insulin Adin, USAR ANAI VEZ AL 100 Each 4 [...] as of this encounter (statuses as of 11/02/2019) Active Problems Problem Noted Date Decompensated hepatic cirrhosis 04/11/2019 Overview: Added automatically from request for everette luna [id number] HCC (hepatocellular carcinoma) 12/14/2018 Alcoholic cirrhosis 10/19/2018 Hepatocellular carcinoma 10/19/2018 documented as of this encounter (statuses as of 11/02/2019) Social History Tobacco Use Types Packs/Day Years [...] Treatment Date Type Specialty Care Team Description 11/08/2019 Appointment Radiology Leeann Duque MD [address] [place] [address] [phone] 11/29/2019 Office Visit Gastroenterology Hortencia Duque MD [address] [place] [address] [phone] 02/26/2020 Office Visit Family Medicine Adelso Serrano MD [address] [place] [address], [place] [phone] Name Type Priority Associated Diagnoses Order S chedule MR ABDOMEN W WO IMAGING Routine Hepatocellular carcinoma 1 Occurrences starting CONTRAST 11/01/2019 unti l 11/01/2019 Health Maintenance Due Date Last Done Comments [...] Name Priority Date/Time Associated Diagnosis Comme nts NOTICE OF PRIVACY Routine 11/01/2019 3:05 PM PRACTICES CDT ASSIGNMENT OF BENEFITS Routine 11/01/2019 3:05 PM CDT CONSENT/REFUSAL FOR Routine 11/01/2019 3:04 PM DIAGNOSIS AND TREATMENT CDT documented in this encounter Results Not on filedocumented in this encounter Visit Diagnoses Diagnosis Hepatocellular carcinoma Malignant neoplasm of liver, primary documented in this encounter Insurance Payer Benefit Plan / Subscriber ID Effective Dates Phone Addre ss Type Group [facility] xxxxxxxxx 2018-Present Medicaid COMM PLAN - PLUS MANAGED MEDICAID (Work) documented as of this encounter
--- OUTSIDE RECORDS SUMMARY | 2020-01-10 09:54 | XMS REPORT | Summary of Care ---
:1955 Author Organization [facility] Address [address] [place] [address] Care Team Providers Name Role Phone Antelmo Serrano MD Primary Care Provider Reason for Visit Reason Comments Blood Draw Encounter Details Date Type Department Care Team Description 10/18/2019 Manager Rn Visit [facility] Hortencia Duque MD [address] [place] [address] [phone] Decompensated hepatic [facility] cirrhosis Allergies Active Allergy Reactions Severity Noted Date Comments Hydroxychloroquine Rash 05/25/2019 Influenza A (H1n1) Vac 2009 Nausea and/or Vomiting documented as of this encounter (statuses as of 10/18/2019) Medications Medication Sig Dispensed Refills Start Date End Date Status lactulose 10 gram/15 mL Take by mouth 0 Active solution daily. predniSONE 10 mg Take 1 tablet by 30 tablet 6 11/16/2018 Active tabletIndications: mouth daily. Hepatocellular carcinoma magnesium oxide 400 mg Take 1 tablet [...] 100 daily. unit/mL (3 mL) injection Insulin [place], USAR ANAI VEZ AL 100 Each 4 [...] Take 400 mg by 0 Active mouth. documented as of this encounter (statuses as of 10/18/2019) Active Problems Problem Noted Date Decompensated hepatic cirrhosis 04/11/2019 Overview: Added automatically from request for everette luna [id number] HCC (hepatocellular carcinoma) 12/14/2018 Alcoholic cirrhosis 10/19/2018 Hepatocellular carcinoma 10/19/2018 documented as of this encounter (statuses as of 10/18/2019) Social History Tobacco Use Types Packs/Day Years [...] Description 11/01/2019 Appointment Radiology Leeann Duque MD [address] [place] [address] [phone] 11/29/2019 Office Visit Gastroenterology Hortencia Duque MD [address] [place] [address] [phone] 02/26/2020 Office Visit Family Medicine Adelso Serrano MD [address] [place] [address] [phone] Name Type Priority Associated Diagnoses Date/Ti me COMP. METABOLIC PANEL LAB Routine Decompensated hepat ic 10/18/2019 10:46 AM ([id number]) cirrhosis [employer] PROTHROMBIN TIME / INR LAB Routine Decompensated hepa tic 10/18/2019 10:46 AM cirrhosis [employer] PROFILE / HEMOGRAM LAB Routine Decompensated hepatic 10/18/2019 10:46 AM cirrhosis [employer] Health Maintenance Due Date Last Done Comments [...] Effective Dates Phone Addre ss Type Group [facility] xxxxxxxxx 2018-Present Medicaid COMM PLAN - PLUS MANAGED MEDICAID [place] (Home) [facility] [phone] [id number] (Work) documented as of this encounter
--- OUTSIDE RECORDS SUMMARY | 2020-01-10 09:56 | XMS REPORT | Summary of Care ---
:[address] [facility] Address [address] [place] [id number] Care Team Providers Name Role Phone Antelmo Serrano MD Primary Care Provider Reason for Referral MRI/CAT Scan (Routine) Status Reason Specialty Diagnoses / Referred By Referred To Procedures Contact Contact Closed Diagnostic Diagnoses Hepatocellular carcinoma Hepatocellular carcinoma [place], Radiology Procedures MR ABDOMEN W WO CONTRAST CHG MRI, ABDOMEN, COMBO MR ABDOMEN W WO CONTRAST MD Cathi [address] [place] [id number] Reason for Visit Reason Comments Cirrhosis Follow-up Encounter Details Date Type Department Care Team Description 10/18/2019 Office Visit [facility] Neto, Hepatocellular carcinoma (Primary Dx); Gastroenterology-Terry Winkler MD Decompensated hepatic cirrhosis; [address] Alcoholic cirrhosis [place] [address] [place] [address] Drive, [address] [phone] [place], [place] [phone] (Fax) [phone] Allergies Active Allergy Reactions Severity Noted Date Comments Hydroxychloroquine Rash 05/25/2019 Influenza A (H1n1) Vac 2009 Nausea and/or Vomiting documented as of this encounter (statuses as of 11/15/2019) Medications Medication Sig Dispensed Refills Start End [...] skin unit/mL (3 mL) daily. injection Insulin [place], USAR ANAI VEZ 100 Each 4 Active [...] as of this encounter (statuses as of 11/15/2019) Active Problems Problem Noted Date Decompensated hepatic cirrhosis 04/11/2019 Overview: Added automatically from request for everette luna [id number] HCC (hepatocellular carcinoma) 12/14/2018 Alcoholic cirrhosis 10/19/2018 Hepatocellular carcinoma 10/19/2018 documented as of this encounter (statuses as of 11/15/2019) Social History Tobacco Use Types Packs/Day Years [...] Sign Reading Time Taken Comments Blood Pressure 125/72 10/18/2019 9:22 AM THERAPEUTIC CASE MANAGER Pulse 68 10/18/2019 9:22 AM THERAPEUTIC CASE MANAGER Temperature 36.1 C (97 F) 10/18/2019 9:22 AM THERAPEUTIC CASE MANAGER Respiratory Rate 18 10/18/2019 9:22 AM THERAPEUTIC CASE MANAGER Oxygen Saturation - - Inhaled Oxygen Concentration - - Weight 82.1 kg (181 lb) 10/18/2019 9:22 AM THERAPEUTIC CASE MANAGER Height 167.6 cm (5' 6") 10/18/2019 9:22 AM THERAPEUTIC CASE MANAGER Body Mass Index 29.21 10/18/2019 9:22 AM THERAPEUTIC CASE MANAGER documented in this encounter Progress Notes Cathi Duque MD - 10/18/2019 9:30 AM CST Gastroenterology & Hepatology Clinic Note Date: 10/18/2019 09:54 CC/Referral reason: CLEMENS cirrhosis with HCC MELD-Na score: 13 at 07/05/2019 12:34 PM MELD score: 13 at 07/05/2019 12:34 PM Calculated from: Serum Creatinine: 1.03 mg/dL at 07/05/2019 12:34 PM Serum Sodium: 139 mmol/L (Rounded to 137 mmol/L) at 07/05/2019 12:34 PM Total Bilirubin: 2.9 mg/dL at 07/05/2019 12:34 PM INR(ratio): 1.3 at 07/05/2019 12:34 PM Age: 64 years HPI: Neto Ingram is a 63 year old male with CLEMENS vs EtOH cirrhosis with no known decompensations c/b HCC (3.5cm LIRADS 5 lesion) who presented to clinic in October 2018 for evaluation of liver transplantation. He also has a diagnosis of lupus for which he is taking prednisone but was seen by sugar laboratory assistant who was not convinced of this diagnosis. His major symptom related to lupus is joint pain. He used to drink up to 6 beers per day for about 15 years. His reported his last drink was in 2016. 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 His case was discussed at tumor board on 11/02/18, and the decision was made to refer him to surgery to consider resection, and TACE if he was deemed to not be a surgicalcandidate. His case was discussed in medical review board but he was declined listing because his liver transplant procedure was considered too high risk if we could not use blood products. He had TACEin November 2018, follow up imaging in March 2019 demonstrated no residual enhancing lesions in the left lobe of the liver. Today, he is without complaint apart from the muscle and joint pain which he attributes to his Lupus. His most recent MRI of the liver from June 2019 indicated residual tumor in his TACE bed. IMAGING: MR Abd with and without contrast (07/13/19): 3.2 cm left lobe liver lesion is stable in size whencompared with CT scan of 04/11/2019. Peripheral enhancement of the tumor in the delayed venous phase imaging is suggestive of residual tumor and will be monitored for any signs of recurrence of the tumor in the future follow-up studies. CT triple phase 04/11/19: Changes of treated tumor of left lobe of the liver. No enhancing lesionsare seen in the left lobe. Interval improvement with decrease signs of thrombosis distal portal veinand/or distally dilated biliary ducts in the left lobe when compared with 11/01/2018 study.. Unchanged small volume rightpleural effusion and rounded atelectasis of the right lower lobe. 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 MAGNESIUM CITRATE ORAL Take 400 mg by mouth. nadolol 20 mg tablet Take 20 mg by mouth daily. XIFAXAN 550 mg tablet TOME ANAI (1) TABLETA(S) POR LA BOCA DOS VECES AL SAMANTHA. 60 tablet 4 spironolactone 50 mg tablet Take 2 tablets by mouth daily. 90 tablet 3 traMADol 50 mg tablet Take 1 tablet by mouth daily. 30 tablet 3 Blood-Glucose Meter (ONETOUCH VERIO SYSTEM) [facility] USAR ANAI A DOS VECES AL SAMANTHA. 50 Each 11 blood sugar diagnostic (ONETOUCH VERIO) strip USAR ANAI A DOS VECES AL SAMANTHA. 50 Strip 12 FUROSEMIDE 40 mg tablet TOME ANAI Y MEDIA (1 Y 1/2) TABLETA(S) POR LA BOCA ANAI VEZ AL SAMANTHA. 45 tablet 5 LORAZEPAM 1 mg tablet TOME ANAI (1) TABLETA(S) POR LA BOCA DIARIO. 30 tablet 4 Insulin [place], Disposable, (INCONTROL PEN NEEDLE) 31 gauge x 1/4" Ndle USAR ANAI VEZ AL SAMANTHA. 100 Each 4 Insulin Detemir (LEVEMIR FLEXTOUCH U-100 INSULN) 100 unit/mL (3 mL) injection inject 30 Units under the skin daily. 1 Each 5 diphenhydrAMINE (BENADRYL) 25 mg capsule Take 25 mg by mouth every 6 (six) hours as needed for Allergies. nadolol 20 mg tablet Take 1 tablet by mouth daily. 30 tablet 12 venlafaxine XR 75 mg 24 hr capsule TOME ANAI (1) CAPSULA(S) POR LA BOCA ANAI VEZ AL SAMANTHA CON EL DESAYUNO. 30 capsule 12 AMMONIUM LACTATE 12 % cream APLIQUE A AREA AFECTADO DOS VECES AL SAMANTHA POR 4 SEMANAS. 385 g 1 ONE TOUCH DELICA 33 gauge [facility] USAR ANAI A DOS VECES AL SAMANTHA. 12 magnesium oxide 400 mg (241.3 mg magnesium) tablet Take 1 tablet by mouth daily. 30 tablet 6 predniSONE 10 mg tablet Take 1 tablet by mouth daily. 30 tablet 6 lactulose 10 gram/15 mL solution Take by mouth daily. No current facility-administered medications for this visit. ROS: General: (-) fever, (-) chills, (-) weight change, (-) dizziness, (-) lightheadedness, (-) decreasedappetite, (+) fatigue Skin: (-) rash, (-) lesion HEENT: [...] polydipsia Neuro: (-) numbness, (-) tingling IONA: (+) muscle pain, (+) joint pain Psych: (-) suicidal ideation , (-) homicidal ideation PE: Vitals: 10/18/19 0922 BP: 125/72 BP Location: Left arm Patient Position: Sitting BP CUFF SIZE: Adult Medium Pulse: 68 Resp: 18 Temp: 36.1 C (97 F) TempSrc: Oral Weight: 82.1 kg (181 lb) Height: 1.676 m (5' 6") General appearance: appears to be in no [...] Radiology: Recent Labs 11/01/18 1500 12/13/18 1554 03/14/19 0851 04/07/19 1555 07/05/19 1234 WBC 7.30 7.12 -- 5.40 6.27 6.59 HGB 11.3* 13.4 -- 12.9 13.6 15.1 HCT 33.7* 40.8 -- 37.6* 40.7 45.9 PLT 86* 80* -- 75* 72* 87* MCV 98.8* 101.7* -- 98.7* 102.0* 101.1* MONOPCT 14.9 12.1 -- 12.4 -- -- EOSPCT 1.2 1.1 -- 2.6 -- -- NA 136 136 < > 140 138 139 K 4.7 5.0 < > 4.0 4.7 4.1 CL 101 102 < > 104 102 99 TCO2 28 26 < > 27 27 28 BUN 18 14 < > 16 15 17 CREAT 0.88 0.78 < > 0.76 0.81 1.03 GLU 204* 133* < > 93 133* 248* ALKPHOS 105 137* -- 128* 157* 141* BILIT 1.4* 2.0* -- 1.6* 1.9* 2.9* BILIUNCON 0.7 0.9 -- -- -- -- TPRO 6.8 7.9 -- 7.2 7.6 7.7 ALB 3.0* 3.5 -- 3.1* 3.3* 3.7 ALT 28 29 -- 26 23 24 AST 33 45* -- 38 47* 42* PTINR 1.4 1.3 -- -- 1.2 1.3 < > = values in this interval not displayed. Endoscopy: EGD 05/25/2019 - Small (< 5 mm) esophageal varices. - Z-line regular, 39 cm from the incisors. - Normal gastric body and antrum. - Normal duodenal bulb and second portion of the duodenum. - No specimens collected. Assessment / Plan: Neto Ingram is a 63 year old male with CLEMENS vs EtOH cirrhosis (MELD- Na 12), Tamy Rose Class B, with no known decompensations c/b HCC (3.5cm LIRADS 5 lesion) s/p TACE 11/2018 who presented to follow up. 1. CLEMENS cirrhosis: His MELD is stable at 13 as of June 2019. He reports complications of hepaticencephalopathy and ascites in the past for which he had paracentesis x 1 in May 2018. He could not be listed for transplant because we were not able to use blood products to resuscitate perioperatively. 2. HCC: He underwent TACE in November 2018 and follow up imaging 03/2019 showed Changes of treated tumorof left lobe of the liver. Repeat MRI demonstrated residual enhancement in the periphery of the liver in June 2019. We will repeat MRI to reassess but he has not seen oncology since November 2018 . 3. Portal hypertension: Manifested by hypersplenism, ascites, and encephalopathy. No evidence of Ascites or encephalopathy on physical exam today. 4. Ascites: He had paracentesis x 1 in May 2018 but has not required repeat paracentesis since he was started on lasix and aldactone. His [id number] reported pleural fluid collections, seen onCT but small. He has no respiratory complaints presently. Continue lasix 60mg daily and aldactone 100mg daily. Patient was counseled on high protein, low Na diet . 5. Encephalopathy: Continues on lactulose and rifaximin. Currently [place] grade 0. 6. Varices screening: EGD 05/2019 with small varices. Repeat EGD in May 2020. 7. Colon cancer surveillance: Patient had two polyps (8mm and 3mm) removed during colonoscopy in 2015 but we do not have results of pathology. He will need repeat colonoscopy in 2020. 8. Lupus: We do not have serologic evidence of Lupus. He continues on daily steroid therapy. 9. Disposition: Repeat MR triple phase. Continue current medications. Patient was extensively counseled on increasing his protein intake. Blood workup ordered to update his MELD. If he should have recurrent tumor on his repeat MRI he will need to see oncology FA[facility] for treatment options. Cathi Duque MD Gastroenterology/ Transplant Hepatology Pager [phone] 10/18/2019 09:53 documented in this encounter Plan of Treatment Date Type Specialty Care Team Description 11/29/2019 Office Visit Gastroenterology Hortencia Duque MD [address] [place], [place] [phone] 02/26/2020 Office Visit Family Medicine Adelso Serrano MD [address] [place] [address] [phone] Health Maintenance Due Date Last [...] 11/01/2018 documented as of this encounter Results MR ABDOMEN W WO CONTRAST (11/08/2019 11:46 AM CDT) Specimen Impressions Performed At PACS/VR/DOSE Stable calcified treated tumor measuring 3.0 cm in the left lobe of liver with interval worsening of intrahepatic biliary ductal dilatation involving the left lobe. Cirrhotic liver with no o ther evidence of focal lesions. Recommend follow up using triple phase l iver CT. Narrative Performed At EXAM: MR ABDOMEN WITH AND WITHOUT CONT RAST PACS/VR/DOSE HISTORY: 64-year-old male with a liver l esion. COMPARISON: June 2019 TECHNIQUE AND FINDINGS: Multiplanar and multisequence MR images of the abdomen were acquired with and without I V contrast. FINDINGS: Stable appearance of rounded atelectasis is seen in th e right lower lobe. There is no evidence of pleural or peric ardial effusion. The liver has a cirrhotic morphology. Th ere is interval worsening of left-sided biliary ductal dilatation (4:9). Signal bart p seen out of phase images is consistent with hepatic steatosis. Previousl y seen lesion in the left lobe of the liver shows peripheral T1 hyperintensity, no contrast enhancement, and is T2 hypointense, stab le in size measuring about 3 cm (4:9) and shows no evidence of restricted diffusion. N o evidence of focal arterial enhancement with delayed washou t to suggest presence of HCC. No filling defects are seen in the gallbladder. No ebony dence of extrahepatic biliary ductal dilatation. The kidneys, adrenals, sple en, and the pancreas appear normal. There is no evidence of free fluid, air, or lymphadenopathy seen in the visualized abdomen. No evidence of bone lesions. Procedure Note [facility], Radiant Results Inft User - 2019 9:43 AM CDT EXAM: MR ABDOMEN WITH AND WITHOUT CONTRAST HISTORY: 64-year-old male with a liver l esion. COMPARISON: June 2019 TECHNIQUE AND FINDINGS: Multiplanar and multisequence MR images of the abdomen were acquired with and without I V contrast. FINDINGS: Stable appearance of rounded atelectasis is seen in the right lower lobe. There is no evidence of pleural or peric ardial effusion. The liver has a cirrhotic morphology. Th ere is interval worsening of left-sided biliary ductal dilatation (4: 9). Signal drop seen out of phase images is consistent with hepatic steato sis. Previously seen lesion in the left lobe of the liver shows peripheral T1 hyperintensity, no contrast enhancement, and is T2 hypointense, stab le in size measuring about 3 cm (4:9) and shows no evidence of restricte d diffusion. No evidence of focal arterial enhancement with delayed washou t to suggest presence of HCC. No filling defects are seen in the gallb ladder. No evidence of extrahepatic biliary ductal dilatation. The kidneys, adrenals, spleen, and the pancreas appear normal. There is no evidence of free fluid, air, or lymphadenopathy seen in the visualized abdomen. No evidence of bone lesions. IMPRESSION Stable calcified treated tumor measuring 3.0 cm in the left lobe of liver with interval worsening of intrahepatic biliary ductal dilatation involving the left lobe. Cirrhotic liver with no o ther evidence of focal lesions. Recommend follow up using triple phase l iver CT. Performing Organization Address City/State/Zipcode Phone Number PACS/VR/DOSE PROFILE / HEMOGRAM (10/18/2019 10:46 AM THERAPEUTIC CASE MANAGER) WBC 6.90 4.20 - 10.70 [facility] 10*3/L SERVICES RBC 4.33 4.26 - 5.52 [facility] 10*6/L SERVICES HGB 14.1 12.2 - 16.4 [facility] g/dL SERVICES HCT 43.1 38.4 - 49.3 % [facility] SERVICES MCH 32.6 26.1 - 32.7 pg [facility] SERVICES MCV 99.5 (H) 81.7 - 95.6 fL [facility] SERVICES MCHC 32.7 31.2 - 35.0 [facility] g/dL SERVICES PLT 84 (L) 150 - 328 [facility] 10*3/L SERVICES MPV 10.9 9.8 - 13.0 fL [facility] SERVICES RDW-CV 14.5 12.1 - 15.4 % [facility] SERVICES RDW-SD 53.9 (H) 38.5 - 51.6 fL [facility] NRBC x10^3 <0.01 10*3/L [facility] SERVICES NRBC/100 WBC 0.0 0.0 - 10.0 [facility] /100 WBCs SERVICES IPF % 6.3Comment: Platelet 1.2 - 10.7 % [facility] count measured by SERVICES fluorescence method. Specimen Blood Performing Organization Address City/State/Zipcode Phone Number [facility] CLIA: [id number], [address] [place] [phone] [facility] PROTHROMBIN TIME / INR (10/18/2019 10:46 AM THERAPEUTIC CASE MANAGER) PROTIME PATIENT 15.2 (H) 10.1 - 12.6 [facility] Seconds SERVICES INR 1.3Comment: Normal [facility] INR <1.1; Warfarin SERVICES Therapeutic range 2.0 to 3.0 or 2.5 to 3.5, depending upon the indications. Specimen Blood Performing Organization Address City/State/Zipcode Phone Number [facility] CLIA: [id number], [address] [place] [address] 555 [facility] COMP. METABOLIC PANEL ([id number]) (10/18/2019 10:46 AM THERAPEUTIC CASE MANAGER) Pathologist Sig nature NA 134 (L) 135 - 145 [facility] mmol/L SERVICES K 4.6 3.5 - 5.0 [facility] mmol/L SERVICES CL 95 (L) 98 - 108 mmol/L [facility] CO2 TOTAL 29 23 - 31 mmol/L [facility] AGAP 10 2 - 16 [facility] BUN 14 7 - 23 mg/dL [facility] GLUCOSE 220 (H) 70 - 110 mg/dL [facility] CREATININE 1.01 0.60 - 1.25 [facility] mg/dL SERVICES TOTAL BILI 2.4 (H) 0.1 - 1.1 mg/dL [facility] SERVICES CALCIUM 9.4 8.6 - 10.6 [facility] mg/dL SERVICES T PROTEIN 7.7 6.3 - 8.2 g/dL [facility] SERVICES ALBUMIN 3.6 3.5 - 5.0 g/dL [facility] ALK PHOS 156 (H) 34 - 122 U/L [facility] ALTv 25 5 - 50 U/L [facility] AST(SGOT) 51 (H) 13 - 40 U/L [facility] eGFR Calculation 74.6 mL/min/1.73m2 [facility] (Non- SERVICES [place]) eGFR Calculation 90.4 mL/min/1.73m2 [facility] () SERVICES Specimen Blood Narrative Performed At Association of Glomerular Filtration Rate (GFR) and St aging [facility] of Kidney Disease* + + +------- ------ + | GFR (mL/min/1.73 m2) | With Kidney Damage | Wi thout Kidney Damage + + +------- ------ + | >90 | Stage one | Normal + + +------- ------ + | 60-89 | Stage two | Decreased GFR + + +------- ------ + | 30-59 | Stage three | Stage three + + +------- ------ + | 15-29 | Stage four | Stage four + + +------- ------ + | <15 (or dialysis) | Stage five | Stage five + + +------- ------ + *Each stage assumes the associated GFR level has been in effect for at least three months. Stages 1 to 5, wit h or without kidney disease, indicate chronic kidney disease. Notes: Determination of stages one and two (with eGFR >59mL/min/1.73 m2) requires estimation of kidney damag e for at least three months as defined by structural or func tional abnormalities of the kidney, manifested by either: Pathological abnormalities or Markers of kidney damage (including abnormalities in the composition of the blo od or urine or abnormalities in imaging tests) . Performing Organization Address City/State/Zipcode Phone Number [facility] CLIA: [id number], [address] [address] [phone] [facility] documented in this encounter Visit Diagnoses Diagnosis Hepatocellular carcinoma - Primary Malignant neoplasm of liver, primary Decompensated hepatic cirrhosis Alcoholic cirrhosis of liver with ascite s Alcoholic cirrhosis of liver documented in this encounter Insurance Payer Benefit Plan / Subscriber ID Effective Dates Phone Addre ss Type [facility] xxxxxxxxx 2018-Present Medicaid COMM PLAN - PLUS MANAGED MEDICAID [place] ([place]) [place] [address] (Work) documented as of this encounter
--- OUTSIDE RECORDS SUMMARY | 2020-01-10 09:56 | XMS REPORT | Summary of Care ---
:1955 Author Organization [facility] Address [address] [place] [address] Care Team Providers Name Role Phone Antelmo Serrano MD Primary Care Provider Reason for Referral MRI/CAT Scan (Routine) Status Reason Specialty Diagnoses / Referred By Referred To Procedures Contact Contact Closed Diagnostic Diagnoses Hepatocellular carcinoma Hepatocellular carcinoma [place], Radiology Procedures MR ABDOMEN W WO CONTRAST CHG MRI, ABDOMEN, COMBO MR ABDOMEN W WO CONTRAST MD Cathi [address] [place] [id number] Reason for Visit Reason Comments Cirrhosis Follow-up Encounter Details Date Type Department Care Team Description 10/18/2019 Office Visit [facility] Neto, Hepatocellular carcinoma (Primary Dx); Gastroenterology-Terry Winkler MD Decompensated hepatic cirrhosis; [address] Alcoholic cirrhosis [place] [address] [place] [address] Drive, 6th Floor [phone] [place], [place] [phone] (Fax) [phone] Allergies Active Allergy Reactions Severity Noted Date [...] skin unit/mL (3 mL) daily. injection Insulin [place], USAR ANAI VEZ 100 Each 4 Active [...] Added automatically from request for everette luna [id number] HCC (hepatocellular carcinoma) 12/14/2018 Alcoholic cirrhosis 10/19/2018 [...] Comments Blood Pressure 125/72 10/18/2019 9:22 AM OIL HEATER INSTALLER Pulse 68 10/18/2019 9:22 AM OIL HEATER INSTALLER Temperature 36.1 C (97 F) 10/18/2019 9:22 AM OIL HEATER INSTALLER Respiratory Rate 18 10/18/2019 9:22 AM OIL HEATER INSTALLER Oxygen Saturation - - Inhaled Oxygen Concentration - - Weight 82.1 kg (181 lb) 10/18/2019 9:22 AM OIL HEATER INSTALLER Height 167.6 cm (5' 6") 10/18/2019 9:22 AM OIL HEATER INSTALLER Body Mass Index 29.21 10/18/2019 9:22 AM OIL HEATER INSTALLER documented in this encounter Progress Notes Cathi [...] is taking prednisone but was seen by heavy truck driver who was not convinced of this diagnosis. His major symptom related to lupus is joint pain. He used to drink up to 6 beers per day for about 15 years. His reported his last drink was in 2016. During the transplant evaluation the patient stated that he was a Baptist and he was unwilling to accept blood [...] file Gets together: Not on file Attends anabaptism service: Not on file Active member of [...] Narrative Retired jo Lives with sons in [place] and [place] Medications: Current Outpatient Medications Medication Sig Dispense [...] tablet 3 Blood-Glucose Meter (ONETOUCH VERIO SYSTEM) [facility] USAR ANAI A DOS VECES AL SAMANTHA. [...] LA BOCA DIARIO. 30 tablet 4 Insulin [place], Disposable, (INCONTROL PEN NEEDLE) 31 gauge x [...] g 1 ONE TOUCH DELICA 33 gauge [facility] USAR ANAI A DOS VECES AL SAMANTHA. [...] was started on lasix and aldactone. His ydmwwoab-ez-iak reported pleural fluid collections, seen onCT but [...] Cathi Duque MD Gastroenterology/ Transplant Hepatology Pager [phone] 10/18/2019 09:53 documented in this encounter Plan of Treatment Date Type Specialty Care Team Description 11/29/2019 Office Visit Gastroenterology Hortencia Duque MD [address] [place], [place] [phone] 02/26/2020 Office Visit Family Medicine Adelso Serrano MD [address] [place] [address] [phone] Health Maintenance Due Date Last [...] No evidence of bone lesions. Procedure Note [facility], Radiant Results Inft User - 2019 9:43 [...] PACS/VR/DOSE PROFILE / HEMOGRAM (10/18/2019 10:46 AM OIL HEATER INSTALLER) WBC 6.90 4.20 - 10.70 [facility] 10*3/L SERVICES RBC 4.33 4.26 - 5.52 [facility] 10*6/L SERVICES HGB 14.1 12.2 - 16.4 [facility] g/dL SERVICES HCT 43.1 38.4 - 49.3 % [facility] SERVICES MCH 32.6 26.1 - 32.7 pg [facility] SERVICES MCV 99.5 (H) 81.7 - 95.6 fL [facility] SERVICES MCHC 32.7 31.2 - 35.0 [facility] g/dL SERVICES PLT 84 (L) 150 - 328 [facility] 10*3/L SERVICES MPV 10.9 9.8 - 13.0 fL [facility] SERVICES RDW-CV 14.5 12.1 - 15.4 % [facility] RDW-SD 53.9 (H) 38.5 - 51.6 fL [facility] SERVICES NRBC x10^3 <0.01 10*3/L [facility] SERVICES NRBC/100 WBC 0.0 0.0 - 10.0 [facility] /100 WBCs SERVICES IPF % 6.3Comment: Platelet 1.2 - 10.7 % [facility] count measured by SERVICES fluorescence method. Specimen Blood Performing Organization Address City/State/Zipcode Phone Number [facility] CLIA: [id number], [address] [place] [address] [phone] [facility] PROTHROMBIN TIME / INR (10/18/2019 10:46 AM OIL HEATER INSTALLER) PROTIME PATIENT 15.2 (H) 10.1 - 12.6 [facility] Seconds SERVICES INR 1.3Comment: Normal [facility] INR <1.1; Warfarin SERVICES Therapeutic range 2.0 to 3.0 or 2.5 to 3.5, depending upon the indications. Specimen Blood Performing Organization Address City/State/Zipcode Phone Number [facility] CLIA: [id number], [address] [place] [address] [facility] COMP. METABOLIC PANEL ([id number]) (10/18/2019 10:46 AM OIL HEATER INSTALLER) Pathologist Sig nature NA 134 (L) 135 - 145 [facility] mmol/L SERVICES K 4.6 3.5 - 5.0 [facility] mmol/L SERVICES CL 95 (L) 98 - 108 mmol/L [facility] SERVICES CO2 TOTAL 29 23 - 31 mmol/L [facility] SERVICES AGAP 10 2 - 16 [facility] BUN 14 7 - 23 mg/dL [facility] SERVICES GLUCOSE 220 (H) 70 - 110 mg/dL [facility] SERVICES CREATININE 1.01 0.60 - 1.25 [facility] mg/dL SERVICES TOTAL BILI 2.4 (H) 0.1 - 1.1 mg/dL [facility] SERVICES CALCIUM 9.4 8.6 - 10.6 [facility] mg/dL SERVICES T PROTEIN 7.7 6.3 - 8.2 g/dL [facility] SERVICES ALBUMIN 3.6 3.5 - 5.0 g/dL [facility] SERVICES ALK PHOS 156 (H) 34 - 122 U/L [facility] ALTv 25 5 - 50 U/L [facility] AST(SGOT) 51 (H) 13 - 40 U/L [facility] SERVICES eGFR Calculation 74.6 mL/min/1.73m2 [facility] (Non- SERVICES [place]) eGFR Calculation 90.4 mL/min/1.73m2 [facility] () SERVICES Specimen Blood Narrative Performed At Association of Glomerular Filtration Rate (GFR) and St aging [facility] SERVICES of Kidney Disease* + [...] . Performing Organization Address City/State/Zipcode Phone Number [facility] CLIA: [id number], [address] [place] [phone] [facility] documented in this encounter Visit Diagnoses Diagnosis Hepatocellular carcinoma - Primary Malignant neoplasm of liver, primary Decompensated hepatic cirrhosis Alcoholic cirrhosis of liver with ascite s Alcoholic cirrhosis of liver documented in this encounter Insurance Payer Benefit Plan / Subscriber ID Effective Dates Phone Addre ss Type [facility] xxxxxxxxx 2018-Present Medicaid COMM PLAN - PLUS MANAGED MEDICAID [place] ([place]) [place] [address] (Work) documented as of this encounter
--- OUTSIDE RECORDS SUMMARY | 2020-01-10 09:56 | XMS REPORT | Summary of Care ---
:1955 Author Organization [facility] Address [address] [place] [address] Care Team Providers Name Role Phone Antelmo Serrano MD Primary Care Provider Reason for Referral MRI/CAT Scan (Routine) Status Reason Specialty Diagnoses / Referred By Referred To Procedures Contact Contact New Request Diagnostic Diagnoses [facility] Procedures MR ABDOMEN W WO CONTRAST MD Cathi [facility] [place] [address] Reason for Visit Reason Comments Liver Cancer Encounter Details Date Type Department Care Team Description 11/29/2019 Telemedicine Visit [facility] [place], Hepatocel lular carcinoma (Primary Dx); Gastroenterology-Balbir Winkler MD Decompensated hepatic cirrhosis; [address] Portal hypertension; [facility] Dilated intrahepatic bile duct Clinics [place] [address] [address], [address] [phone] [place], [place] [phone] (Fax) [phone] Allergies Active Allergy Reactions Severity Noted Date Comments Hydroxychloroquine Rash 05/25/2019 Influenza A (H1n1) Vac 2009 Nausea and/or Vomiting documented as of this encounter (statuses as of 11/29/2019) Medications Medication Sig Dispensed Refills Start Date End Date Status lactulose 10 gram/15 mL Take by mouth 0 Active solution daily. magnesium oxide 400 mg Take 1 tablet by 30 tablet 11/16/2018 Active (241.3 mg magnesium) mouth daily. [...] 100 daily. unit/mL (3 mL) injection Insulin [place], USAR ANAI VEZ AL 100 Each 4 [...] as of this encounter (statuses as of 11/29/2019) Active Problems Problem Noted Date Decompensated hepatic cirrhosis 04/11/2019 Overview: Added automatically from request for everette luna [id number] HCC (hepatocellular carcinoma) 12/14/2018 Alcoholic cirrhosis 10/19/2018 Hepatocellular carcinoma 10/19/2018 documented as of this encounter (statuses as of 11/29/2019) Social History Tobacco Use Types Packs/Day Years [...] Signs Not on filedocumented in this encounter Progress Notes Cathi Duque MD - 11/29/2019 9:00 AM CDT General Hepatology Telemedicine Clinic Note Date: 11/29/2019 09:17 Mr. Ingram was consented for telemedicine visit and agreed to visit via Friend Traveler Patient location: Home Provider location: Home office Visit was conducted with audio and video via Friend Traveler Call duration: 20 minutes CC/Referral reason: CLEMENS cirrhosis with HCC MELD-Na score: 16 at 10/18/2019 10:46 AM MELD score: 13 at 10/18/2019 10:46 AM Calculated from: Serum Creatinine: 1.01 mg/dL at 10/18/2019 10:46 AM Serum Sodium: 134 mmol/L at 10/18/2019 10:46 AM Total Bilirubin: 2.4 mg/dL at 10/18/2019 10:46 AM INR(ratio): 1.3 at 10/18/2019 10:46 AM Age: 64 years HPI: Neto Ingram is a 63 year old male with CLEMENS vs EtOH cirrhosis with no known decompensations c/b HCC (3.5cm LIRADS 5 lesion) who presented to clinic in October 2018 for evaluation of liver transplantation. He also has a diagnosis of lupus for which he is taking prednisone but was seen by r heumatologist who was not convinced of this diagnosis. His major symptom related to lupus is joint pain. He used to drink up to 6 beers per day for about 15 years. His reported his last drink was in 2016. During the transplant evaluation the patient stated that he was a [employer]ian and he was unwilling to accept blood products. His case was discussed at tumor board on 11/02/18, and the decision was made to refer him to surgery to consider resection, and TACE if he was deemed to not be a surgical candidate. His case was discussed in medical review board but he was declined listing because hisliver transplant procedure was considered too high risk if we could not use blood products. He had TACE in November 2018, follow up imaging in March 2019 demonstrated no residual enhancing lesions in theleft lobe of the liver. During his last visit, review of MRI from June 2019 indicated residual tumor in his TACE bed. This was followed up by repeat MRI which was obtained November 09. The MRI from November 09 demonstrated interval worsening of intrahepatic ductal dilatation in the left lobe of the liver but without art erial enhancement or delayed washout to suggest recurrent tumor in the TACE bed in the left lobe. IMAGING: MR abd with and without contrast (11/10/19): The liver has a cirrhotic morphology. There is interval worsening of left-sided biliary ductal dilatation (4:9). Signal drop seen out of phase images is consistent with hepatic steatosis. Previously seen lesion in the left lobe of the liver shows peripheral T1 hyperintensity, no contrast enhancement, and is T2 hypointense, stable in size measuring about 3 cm and shows no evidence of restricted diffusion. No evidence of focal arterial enhancement with delayed washout to suggest presence of HCC. MR Abd with and without contrast (07/13/19): [...] file Gets together: Not on file Attends jewish service: Not on file Active member of [...] Narrative Retired jo Lives with sons in [facility] Medications: Current Outpatient Medications Medication Sig Dispense Refill predniSONE 10 mg tablet Take 1 tablet by mouth daily. 30 tablet 6 Cholecalciferol, Vitamin D3, (VITAMIN D3) 2,000 unit tablet Take by mouth. MAGNESIUM CITRATE ORAL Take 400 mg by mouth. nadolol 20 mg tablet Take 20 mg by mouth daily. XIFAXAN 550 mg tablet TOME ANAI (1) TABLETA(S) POR LA BOCA DOS VECES AL SAMANTHA. 60 tablet 4 Blood-Glucose Meter (ONETOUCH VERIO SYSTEM) [facility] USAR ANAI A DOS VECES AL SAMANTHA. 50 Each 11 blood sugar diagnostic (ONETOUCH VERIO) strip USAR NAAI A DOS VECES AL SAMANTHA. 50 Strip 12 spironolactone 50 mg tablet Take 2 tablets by mouth daily. 90 tablet 3 traMADol 50 mg tablet Take 1 tablet by mouth daily. 30 tablet 3 FUROSEMIDE 40 mg tablet TOME ANAI Y [...] g 1 ONE TOUCH DELICA 33 gauge [facility] USAR ANAI A DOS VECES AL SAMANTHA. [...] suicidal ideation , (-) homicidal ideation PE: There were no vitals filed for this visit. General appearance: appears to be in no acute distress, conversant and cooperative Eyes: anicteric sclerae, EOM intact HENT: atraumatic; normocephalic Skin: anicteric Neurologic: No asterixis nor tremor Psych: normal mood and affect, alert and oriented to person, place, time, and situation Labs / Radiology: Recent Labs 12/13/18 1554 03/14/19 0851 04/07/19 1555 07/05/19 1234 10/18/19 1046 WBC 7.12 -- 5.40 6.27 6.59 6.90 HGB 13.4 -- 12.9 13.6 15.1 14.1 HCT 40.8 -- 37.6* 40.7 45.9 43.1 PLT 80* -- 75* 72* 87* 84* MCV 101.7* -- 98.7* 102.0* 101.1* 99.5* MONOPCT 12.1 -- 12.4 -- -- -- EOSPCT 1.1 -- 2.6 -- -- -- NA 136 < > 140 138 139 134* K 5.0 < > 4.0 4.7 4.1 4.6 CL 102 < > 104 102 99 95* TCO2 26 < > 27 27 28 29 BUN 14 < > 16 15 17 14 CREAT 0.78 < > 0.76 0.81 1.03 1.01 GLU 133* < > 93 133* 248* 220* ALKPHOS 137* -- 128* 157* 141* 156* BILIT 2.0* -- 1.6* 1.9* 2.9* 2.4* BILIUNCON 0.9 -- -- -- -- -- TPRO 7.9 -- 7.2 7.6 7.7 7.7 ALB 3.5 -- 3.1* 3.3* 3.7 3.6 ALT 29 -- 26 23 24 25 AST 45* -- 38 47* 42* 51* PTINR 1.3 -- -- 1.2 1.3 1.3 < > = values in this [...] up. 1. CLEMENS cirrhosis: His MELD is 16 as of Sep 2019. He reports complications of hepatic encephalopathyand ascites in the past for which he had paracentesis x 1 in May 2018. He could not be listed for transplant because of jewish . 2. HCC: He underwent TACE in November 2018 and follow up imaging 03/2019 showed changes of treated tumorof left lobe of the liver. Repeat MRI demonstrated residual enhancement in the periphery of the liver in June 2019 which was not seen on imaging from October 2019. His AFP was never really elevated even at the outset. We will repeat MRI in January 2020 and will repeat AFP with labs in December. He has not seen oncology since November 2018 . 3. Intrahepatic biliary ductal dilatation: On the left, progressed since the last time but without evidence for recurrent tumor or increase in the size of HCC which could potentially results in mass effect. I will check AFP but the MRI did not report any concerning findings for infiltrative HCC either. 4. Portal hypertension: Manifested by hypersplenism, ascites, and encephalopathy. No ascites nor encephalopathy noted today. 5. Ascites: He had paracentesis x 1 in May 2018 but has not required repeat paracentesis since he was started on lasix and aldactone. His iseldcxn-ty-agy reported pleural fluid collections, seen onCT but small. He has no respiratory complaints. Continue lasix 60mg daily and aldactone 100mg daily.Patient was counseled on high protein, low Na diet . 6. Encephalopathy: Continues on lactulose and rifaximin. Currently [place] grade 0. 7. Varices screening: EGD 05/2019 with small varices. Repeat EGD in May 2020. 8. Colon cancer surveillance: Patient had two polyps (8mm and 3mm) removed during colonoscopy in 2015 but we do not have results of pathology. He will need repeat colonoscopy in 2020. 9. Lupus: We do not have serologic evidence of Lupus. He continues on daily steroid therapy under the care of tailor fitter. 10. Disposition: Repeat MR triple phase and labs in January 2020. Return to clinic in 3 months. Cathi Duque MD Gastroenterology/ Transplant Hepatology Pager [phone] 11/29/2019 09:17 documented in this encounter Plan of Treatment Date Type Specialty Care Team Description 02/26/2020 Office Visit Family Medicine Adelso Serrano MD [address] [place] [address] [phone] Name Type Priority Associated Diagnoses Order S chedule MR ABDOMEN W WO IMAGING Routine Hepatocellular carcinoma Expected: CONTRAST 02/12/2020, Exp ires: 2020 COMP. METABOLIC PANEL LAB Routine Hepatocellular carc inoma Expected: ([id number]) 11/29/2019, Exp ires: 11/28/2020 PROTHROMBIN TIME / INR LAB Routine Hepatocellular car cinoma Expected: 11/29/2019, Exp ires: 11/28/2020 PROFILE / HEMOGRAM LAB Routine Hepatocellular carcino ma Expected: 11/29/2019, Exp ires: 11/28/2020 ALPHA FETOPROTEIN LAB Routine Hepatocellular carcinom a Expected: 11/29/2019, Exp ires: 11/28/2020 Health Maintenance Due Date Last Done Comments [...] neoplasm of liver, primary Decompensated hepatic cirrhosis Portal hypertension Dilated intrahepatic bile duct Other specified disorders of biliary tra ct documented in this encounter Insurance Payer Benefit Plan / Subscriber ID Effective Dates Phone Addre ss Type Group [facility] xxxxxxxxx 2018-Present Medicaid COMM PLAN - PLUS MANAGED MEDICAID [place] (Home) [place] [address] (Work) documented as of this encounter
--- OUTSIDE RECORDS SUMMARY | 2020-01-10 09:57 | XMS REPORT | Summary of Care ---
:[address] [facility] Address [address] [place] [address] Care Team Providers Name Role Phone Antelmo Serrano MD Primary Care Provider Reason for Visit Reason Comments Assessment Encounter Details Date Type Department Care Team Description 01/10/2020 Telephone [facility] Family Medicine Jama hightower, Adelso Rodriges MD Assessment - [address] [address] [place] [address] [phone] Allergies Active Allergy Reactions Severity Noted Date Comments Hydroxychloroquine Rash 05/25/2019 Influenza A (H1n1) Vac 2009 Nausea and/or Vomiting documented as of this encounter (statuses as of 01/10/2020) Medications Medication Sig Dispensed Refills Start Date End Date Status lactulose 10 gram/15 mL Take by mouth 0 Active solution daily. magnesium oxide 400 mg Take 1 tablet by 30 tablet 6 11/16/2018 Active (241.3 mg magnesium) mouth daily. tabletIndications: Hepatocellular carcinoma AMMONIUM LACTATE 12 % APLIQUE A AREA [...] 100 daily. unit/mL (3 mL) injection Insulin [place], USAR ANAI VEZ AL 100 Each 4 [...] 11/01/2019 Active tabletIndications: mouth daily. Hepatocellular carcinoma ONETOUCH DELICA PLUS USAR ANAI A DOS 100 Each 11 12/18/2019 Active LANCET 33 gauge Misc VECES AL SAMANTHA. documented as of this encounter (statuses as of 01/10/2020) Active Problems Problem Noted Date Decompensated hepatic cirrhosis 04/11/2019 Overview: Added automatically from request for everette luna [id number] HCC (hepatocellular carcinoma) 12/14/2018 Alcoholic cirrhosis 10/19/2018 Hepatocellular carcinoma 10/19/2018 documented as of this encounter (statuses as of 01/10/2020) Social History Tobacco Use Types Packs/Day Years [...] Treatment Date Type Specialty Care Team Description 02/13/2020 Appointment Radiology Leeann Duque MD [facility] [place] [address] [phone] 02/26/2020 Office Visit Family Medicine Adelso Serrano MD [address] [place] [address] [phone] Health Maintenance Due Date Last Done Comments PNEUMOCOCCAL 0-64 YEARS COMBINED 1962 SERIES (1 of 3 - PCV13) EYE EXAM 1966 URINE MICROALBUMIN 1966 DTaP,Tdap,and Td Vaccines (1 - 1967 Tdap) FOOT EXAM 1974 COLONOSCOPY 2006 Zoster Recombinant Vaccine 2006 (SHINGRIX) (1 of 2) HgA1C 02/26/2020 08/28/2019, 03/14/2019, 11/16/2018 LDL-C 03/14/2020 03/14/2019 INFLUENZA VACCINE (Season Ended) 2020 CREATININE (SERUM) 10/18/2020 10/18/2019, 07/05/2019, 04/07/2019, Additional history exists HEPATITIS C (HCV) SCREEN Completed 11/01/2018 documented as of this encounter Results Not on filedocumented in this encounter Insurance Payer Benefit Plan / Subscriber ID Effective Dates Phone Addre ss Type Group [facility] xxxxxxxxx 2018-Present Medicaid COMM PLAN - PLUS MANAGED MEDICAID documented as of this encounter
--- NOTE | 2020-01-10 10:09 | RAD REPORT ---
EXAM DESCRIPTION: CT - [id number] - 01/10/2020 9:49 am CLINICAL HISTORY: Trauma, head and neck injury. Fall, s/p head injury with neck pain;Pain COMPARISON: No comparisons TECHNIQUE: Axial 5 mm thick images of the head were obtained. Axial 2 mm thick images of the cervical spine were obtained with sagittal and coronal reconstruction images generated and reviewed. All CT scans are performed using dose optimization technique as appropriate and may include automated exposure control or mA/KV adjustment according to patient size. FINDINGS: CT HEAD WITHOUT CONTRAST: No acute hemorrhage, hydrocephalus or extra-axial collection is identified.Moderate generalized brain atrophy.No areas of brain edema or midline shift. The paranasal sinuses and mastoids are clear.The calvarium is intact. CT CERVICAL SPINE WITHOUT CONTRAST: No fracture or subluxation.Mild lower cervical degenerative changes.No prevertebral soft tissues swel ling is identified. IMPRESSION: No acute intracranial or cervical spine findings.
--- NOTE | 2020-01-10 10:31 | ER ---
Nurse's Notes [facility] Name: Neto Ingram Age: 64 yrs Sex: Male : 1955 Arrival Date: 01/10/2020 Time: 08:53 Bed 8 Private MD: Diagnosis: Sprain of joints and ligaments of other parts of neck;Superficial injury of head Presentation: 01/09 08:59 Chief complaint: Patient states: pt was getting out of bed and lost his balance, fell iw and hit his head on back of head against the wall, now c/o dizziness, denies LOC, not on blood thinners. Care prior to arrival: None. Mechanism of Injury: Fall from standing position. Trauma event details: Injury occurred in the [facility], Injury occurred: at home. 08:59 Acuity: BULMARO 4 iw 08:59 Method Of Arrival: Wheelchair iw 09:01 Coronavirus screen: Proceed with normal triage. Patient denies a cough. Patient denies iw shortness of breath or difficulty breathing. Patient denies measured and/or subjective temperature greater than 100.4F prior to today's visit. Patient denies travel on a cruise ship or to a country the [facility] [place]NOTE 2] currently lists as an affected area. Patient denies contact with known and/or suspected case of COVID-19. Ebola Screen: Patient negative for fever greater than or equal to 101.5 degrees Fahrenheit, and additional compatible Ebola Virus Disease symptoms Patient denies exposure to infectious person. Patient denies travel to an Ebola-affected area in the 21 days before illness onset. No symptoms or risks identified at this time. Initial Sepsis Screen: Does the patient meet any 2 criteria? No. Patient's initial sepsis screen is negative. Does the patient have a suspected source of infection? No. Patient's initial sepsis screen is negative. Risk Assessment: Do you want to hurt yourself or someone else? Patient reports no desire to harm self or others. Onset of symptoms was January 10, 2020. Trauma Activation: Not Applicable Physician: ED Physician; Name: ; Notified At: ; Arrived At: Physician: General Surgeon; Name: ; Notified At: ; Arrived At: Physician: Radiology; Name: ; Notified At: ; Arrived At: Physician: Respiratory; Name: ; Notified At: ; Arrived At: Physician: Lab; Name: ; Notified At: ; Arrived At: Historical: - Allergies: : unknown lupus medication; iw : flu vaccine; iw - Home Meds: : furosemide 40 mg Oral tab 1 tab once daily [Active]; Levemir 100 unit/mL subcutaneous iw soln [Active]; lactulose 10 gram/15 mL Oral soln once daily [Active]; lorazepam 1 mg Oral tab [Active]; magnesium oxide 400 mg Oral tab [Active]; Corgard 20 mg Oral tab 1 tab once daily [Active]; prednisone 10 mg Oral tab once daily [Active]; spironolactone 50 mg Oral tab 1 tab 2 times per day [Active]; tramadol 50 mg Oral tab daily [Active]; venlafaxine 75 mg oral tr24 1 tab once daily [Active]; Xifaxan 550 mg oral tab 1 tab 2 times per day [Active]; - PMHx: :07 Anxiety; Cirrhosis; Depression; Diabetes - IDDM; Hypertension; Liver tumor; Lupus; iw - PSHx: 09: Hernia repair; iw - Immunization history:: Adult Immunizations not up to date. - Social history:: Smoking status: . - Immunization history: Last tetanus immunization: unknown. Screenin:26 Abuse screen: Denies threats or abuse. Denies injuries from another. Nutritional ph screening: No deficits noted. Tuberculosis screening: No symptoms or risk factors identified. Fall Risk Fall in past 12 months (25 points). No secondary diagnosis (0 pts). No IV (0 pts). Ambulatory Aid- None/Bed Rest/Nurse Assist (0 pts). Gait- Normal/Bed Rest/Wheelchair (0 pts) Mental Status- Oriented to own ability (0 pts). Primary Survey: 09:30 NO uncontrolled hemorrhage observed. A: The patient is alert. Airway: patent, No ph supplemental oxygen in use on arrival. Oral cavity: clear, Trachea midline. Breathing/Chest: Respiratory pattern: regular, Respiratory effort: spontaneous, unlabored, Chest inspection: symmetrical rise and fall of the chest. Circulation: Skin color: pink, Skin temperature: warm, dry. Disability Alert. Exposure/Environment: There is no evidence of uncontrolled external bleeding. No obvious injuries are noted at this time. 10:53 Reassessment Airway Airway Patent Breathing/Chest Respiratory pattern Regular ph Respiratory effort Spontaneous Unlabored Circulation Color [place] Temperature Warm Dry Disability Alert. Assessment: 09:30 General: Appears in no apparent distress. comfortable, well groomed, Behavior is calm, ph cooperative, appropriate for age. Pain: Complains of pain in scalp. Neuro: Level of Consciousness is awake, alert, obeys commands, Oriented to person, place, time, situation, Reports dizziness, headache occipital area, Denies weakness blurred vision diplopia. Cardiovascular: No deficits noted. Respiratory: No deficits noted. Derm: Skin is intact, is healthy with good turgor, Skin is pink, warm \T\ dry. Musculoskeletal: Circulation, motion, and sensation intact. Range of motion: intact in all extremities. Vital Signs: 09:01 BP 146 / 85; Pulse 83; Resp 16; Temp 98.6; Pulse Ox 96% on R/A; Weight 80.74 kg; Height iw 5 ft. 5 in. (165.10 cm); Pain 4/10; 10:30 BP 138 / 87; Pulse 81; Resp 18; Temp 98.2; Pulse Ox 98% on R/A; ph 09:01 Body Mass Index 29.62 (80.74 kg, 165.10 cm) iw [place] Coma Score: 09:30 Eye Response: spontaneous(4). Verbal Response: oriented(5). Motor Response: obeys ph commands(6). Total: 15. 10:30 Eye Response: spontaneous(4). Verbal Response: oriented(5). Motor Response: obeys ph commands(6). Total: 15. Trauma Score (Adult): 09:30 Eye Response: spontaneous(1); Verbal Response: oriented(1); Motor Response: obeys ph commands(2); Systolic BP: > 89 mm Hg(4); Respiratory Rate: 10 to 29 per min(4); [place] Score: 15; Trauma Score: 12 10:30 Eye Response: spontaneous(1); Verbal Response: oriented(1); Motor Response: obeys ph commands(2); Systolic BP: > 89 mm Hg(4); Respiratory Rate: 10 to 29 per min(4); [place] Score: 15; Trauma Score: 12 ED Course: 08:53 Patient arrived in ED. as 09:01 Triage completed. iw 09:01 Arm band placed on. iw 09:03 Mumtaz Pantoja MD is Attending Physician. kdr 09:26 Paz Carrasco, RN is Primary Nurse. ph 09:27 Patient has correct armband on for positive identification. Bed in low position. Call ph light in reach. Side rails up X 1. Pulse ox on. NIBP on. Door closed. Noise minimized. 09:32 Patient maintains SpO2 saturation greater than 95% on room air. Thermoregulation: warm ph blanket given to patient. 09:49 CT Head C Spine In Process Unspecified. EDMS 10:55 No provider procedures requiring assistance completed. Patient did not have IV access ph during this emergency room visit. Administered Medications: No medications were administered Intake: 09:30 PO: 0ml; Total: 0ml. ph 10:30 PO: 0ml; Total: 0ml. ph Output: 09:30 Urine: 0ml; Total: 0ml. ph 10:30 Urine: 0ml; Total: 0ml. ph Outcome: 10:30 Discharge ordered by . kdr 10:55 Discharged to home ambulatory, with family. ph 10:55 Condition: good 10:55 Discharge instructions given to patient, Instructed on discharge instructions, follow up and referral plans. medication usage, Demonstrated understanding of instructions, follow-up care, medications, Prescriptions given X 1. 10:56 Patient's length of stay was not longer than 2 hours. ph 10:56 Patient left the ED. ph Signatures: Dispatcher [employer] EDMS Mumtaz Pantoja MD MD kdr Oxana Sam as Savana Carbajal, Paz Serrano RN, RN RN ph Corrections: (The following items were deleted from the chart) 09:01 08:59 Chief complaint: Patient states: pt was getting out of bed and lost his balance, iw fell and hit his head on back of head against the wall, now c/o dizziness, denies LOC iw
--- NOTE | 2020-01-10 10:32 | EDPHYS ---
Physician Documentation [facility] Name: Neto Ingram Age: 64 yrs Sex: Male : 1955 Arrival Date: 01/10/2020 Time: 08:53 Bed 8 Private MD: ED Physician Mumtaz Pantoja HPI: 01/09 09:25 This 64 yrs old Male presents to ER via Wheelchair with complaints of Fall kdr Injury, Head Injury Without LOC-Adult, Dizziness. 09:36 Details of fall: The patient fell from an upright position, while standing. Onset: The kdr symptoms/episode began/occurred suddenly, just prior to arrival, this morning. Associated injuries: The patient sustained neck injury, decreased range of motion, pain, pain with movement. Severity of symptoms: At their worst the symptoms were mild, in the emergency department the symptoms are unchanged. The patient has not experienced similar symptoms in the past. The patient has not recently seen a physician. Historical: - Allergies: :08 unknown lupus medication; iw 09:08 flu vaccine; iw - Home Meds: :07 furosemide 40 mg Oral tab 1 tab once daily [Active]; Levemir 100 unit/mL subcutaneous iw soln [Active]; lactulose 10 gram/15 mL Oral soln once daily [Active]; lorazepam 1 mg Oral tab [Active]; magnesium oxide 400 mg Oral tab [Active]; Corgard 20 mg Oral tab 1 tab once daily [Active]; prednisone 10 mg Oral tab once daily [Active]; spironolactone 50 mg Oral tab 1 tab 2 times per day [Active]; tramadol 50 mg Oral tab daily [Active]; venlafaxine 75 mg oral tr24 1 tab once daily [Active]; Xifaxan 550 mg oral tab 1 tab 2 times per day [Active]; - PMHx: 09:07 Anxiety; Cirrhosis; Depression; Diabetes - IDDM; Hypertension; Liver tumor; Lupus; iw - PSHx: 09:07 Hernia repair; iw - Immunization history:: Adult Immunizations not up to date. - Social history:: Smoking status: . - Immunization history: Last tetanus immunization: unknown. ROS: 09:36 Constitutional: Negative for fever, chills, and weight loss, Eyes: Negative for injury, kdr pain, redness, and discharge, ENT: Negative for injury, pain, and discharge, Cardiovascular: Negative for chest pain, palpitations, and edema, Respiratory: Negative for shortness of breath, cough, wheezing, and pleuritic chest pain, Abdomen/GI: Negative for abdominal pain, nausea, vomiting, diarrhea, and constipation, Back: Negative for injury and pain, : Negative for injury, bleeding, discharge, and swelling, MS/Extremity: Negative for injury and deformity, Skin: Negative for injury, rash, and discoloration, Neuro: Negative for headache, weakness, numbness, tingling, and seizure activity. Psych: Negative for depression, anxiety, suicide ideation, homicidal ideation, and hallucinations, Allergy/Immunology: Negative for hives, rash, and allergies, Endocrine: Negative for neck swelling, polydipsia, polyuria, polyphagia, and marked weight changes, Hematologic/Lymphatic: Negative for swollen nodes, abnormal bleeding, and unusual bruising. 09:36 Neck: Positive for pain with movement. Exam: 09:36 Constitutional: This is a well developed, well nourished patient who is awake, alert, kdr and in no acute distress. Head/Face: Normocephalic, atraumatic. Eyes: Pupils equal round and reactive to light, extra-ocular motions intact. Lids and lashes normal. Conjunctiva and sclera are non-icteric and not injected. Cornea within normal limits. Periorbital areas with no swelling, redness, or edema. 09:36 Neck: External neck: is normal, C-spine: appears grossly normal, vertebral tenderness, is not appreciated, diffusely. Vital Signs: 09:01 BP 146 / 85; Pulse 83; Resp 16; Temp 98.6; Pulse Ox 96% on R/A; Weight 80.74 kg; Height iw 5 ft. 5 in. (165.10 cm); Pain 4/10; 10:30 BP 138 / 87; Pulse 81; Resp 18; Temp 98.2; Pulse Ox 98% on R/A; ph 09:01 Body Mass Index 29.62 (80.74 kg, 165.10 cm) iw [place] Coma Score: 09:30 Eye Response: spontaneous(4). Verbal Response: oriented(5). Motor Response: obeys ph commands(6). Total: 15. 10:30 Eye Response: spontaneous(4). Verbal Response: oriented(5). Motor Response: obeys ph commands(6). Total: 15. Trauma Score (Adult): 09:30 Eye Response: spontaneous(1); Verbal Response: oriented(1); Motor Response: obeys ph commands(2); Systolic BP: > 89 mm Hg(4); Respiratory Rate: 10 to 29 per min(4); [place] Score: 15; Trauma Score: 12 10:30 Eye Response: spontaneous(1); Verbal Response: oriented(1); Motor Response: obeys ph commands(2); Systolic BP: > 89 mm Hg(4); Respiratory Rate: 10 to 29 per min(4); [place] Score: 15; Trauma Score: 12 MDM: 09:36 Data reviewed: vital signs, nurses notes. Counseling: I had a detailed discussion with kdr the patient and/or guardian regarding: the historical points, exam findings, and any diagnostic results supporting the discharge/admit diagnosis, radiology results, the need for outpatient follow up. 10:30 Patient medically screened. [facility] 01/09 09:27 Order name: CT Head C Spine; Complete Time: 10:27 [facility] Administered Medications: No medications were administered Disposition: 01/10/20 10:30 Discharged to Home. Impression: Sprain of joints and ligaments of other parts of neck, Superficial injury of head. - Condition is Stable. - Discharge Instructions: Cervical Sprain, [id number], Head Injury, Adult, [id number]. - Prescriptions for Ibuprofen 600 mg Oral Tablet - take 1 tablet by ORAL route every 6 hours As needed take with food; 30 tablet. - Medication Reconciliation Form, Thank You Letter form. - Follow up: Private Physician; When: 2 - 3 days; Reason: If symptoms return, Further diagnostic work-up, Recheck today's complaints, Continuance of care, Re-evaluation by your physician. - Problem is new. - Symptoms have improved. Signatures: Dispatcher [employer] EDMS Mumtaz Pantoja MD MD kdr Savana Carbajal RN RN iw Paz Carrasco RN RN ph Corrections: (The following items were deleted from the chart) 10:56 10:30 01/10/2020 10:30 Discharged to Home. Impression: Sprain of joints and ligaments ph of other parts of neck; Superficial injury of head. Condition is Stable. Forms are Medication Reconciliation Form, Thank You Letter, Antibiotic Education, Prescription Opioid Use. Follow up: Private Physician; When: 2 - 3 days; Reason: If symptoms return, Further diagnostic work-up, Recheck today's complaints, Continuance of care, Re-evaluation by your physician. Problem is new. Symptoms have improved. kdr
[2020-01-10 11:03] VITALS: BP 138/87; TEMP 98.2; O2SAT 98
== END 2020-01-10 10:56 | disposition home or self-care (01) ==
LOC: ER 08:51
DX: S13.8XXA Sprain of joints and ligaments of other parts of neck, initial encounter (principal); W19.XXXA Unspecified fall, initial encounter; Y93.89 Activity, other specified; Y92.9 Unspecified place or not applicable; Z88.7 Allergy status to serum and vaccine; Z88.9 Allergy status to unspecified drugs, medicaments and biological substances; I10 Essential (primary) hypertension; E11.9 Type 2 diabetes mellitus without complications; F34.1 Dysthymic disorder; Z79.4 Long term (current) use of insulin
CPT/HCPCS: 70450; 72125; 99284